=== PATIENT | male | born 1960 | race Caucasian/White ===

== ENCOUNTER → 2018-04-25 08:14 | Outpatient (CLI) | payer OTHER, SELFPAY ==
--- NOTE | 2018-04-25 | DI.US.S_ITS ---
PROCEDURE: US ABDOMEN LIMITED INDICATIONS: Bilateral inguinal hernia, without obstruction or TECHNIQUE: Real-time focused scanning was performed of the abdomen, with image documentation. COMPARISON: [facility], , ABDOMEN LIMITED, 03/24/2016, 10:14. FINDINGS: Targeted sonographic imaging of the bilateral inguinal regions was performed. There are bilateral fat containing inguinal hernias (right greater than left). The hernia sac on the right measures 4.5 x 3.5 cm with the neck of the hernia measuring 1.1 cm in diameter. The hernia sac on the left measures 4.1 x 1.9 cm with the neck of the hernia measuring 0.7 cm. No bowel is seen extending into these hernias. No soft tissue masses or drainable fluid collections are identified. No adjacent lymphadenopathy is appreciated. IMPRESSION: Small bilateral fat containing inguinal hernias. Dictated by: Colten Urrutia M.D. on 04/25/2018 at 8:38 Approved by: Colten Urrutia M.D. on 04/25/2018 at 8:40
== END ==
PROVIDERS: Visit Provider Student in an Organized Health Care Education/Training Program
DX: K40.20 Bilateral inguinal hernia, without obstruction or gangrene, not specified as recurrent (principal)
CPT/HCPCS: 76705

== ENCOUNTER 2018-05-30 06:46 | Day surgery (SDC) | payer OTHER, SELFPAY ==
[2018-05-27 10:22] VITALS: BMI 55.3
[2018-05-30] VITALS (14 sets, daily range): BP systolic 97–147; BP diastolic 65–91; PULSE 61–107; RESP 12–16; TEMP 36.3–37.1; O2SAT 91–97; BMI 55.3
--- NOTE | 2018-05-30 07:25 | P.OP.PRE_ITS ---
Pre-operative Note Interval Note History & Physical reviewed/Exam performed by Physician: Yes Changes to H&P: No H&P completed within 30 days and has changed as indicated here:: no change to H& P performed 05/17/18
[2018-05-30] MEDS: LACTATED RINGERS 1,000 ML 42 ML IV ×3 (07:40→11:41)
[2018-05-30] MEDS: CEFAZOLIN 2 GM/100 ML FROZ.PIGGY IV (07:45)
--- NOTE | 2018-05-30 08:08 | SUR.OPER ---
Supine on padded OR bed, head on pillow, arms secured on padded arm boards at <90 degrees abduction, legs uncrossed, safety belt at thigh, tape over blanket over lower legs.
[2018-05-30] MEDS: BUPIVACAINE 0.5% (PF) VIAL 30 ML INJ (08:13)
--- NOTE | 2018-05-30 08:39 | SUR.PREOP ---
glucose blood fingerstick not needed per dr. yuen 1973
--- NOTE | 2018-05-30 10:34 | PM.OP.1 ---
Operative Date/Time/Diagnoses Date of procedure: 05/30/18 Time of procedure: 10:34 Pre-op diagnosis: Bilateral inguinal hernias reducible without incarceration or strangulation. Post-op diagnosis: same (Right side direct and indirect. Left side direct.) Procedure & Clinicians Procedure: Repair bilateral inguinal hernias with plug and patch technique on both sides. Same procedure as scheduled: Yes Indications: Symptomatic bilateral inguinal hernias Surgeon: Morgan Ovalle Click Yes if Unassisted: Yes Anesthesia Type: General Operative Notes Findings: See postop diagnosis Closure Type: primary Specimen(s): none sent Implants & Drains: Mesh Estimated Blood Loss (mL): 15 Blood products transfused: none Procedure in detail: The patient is placed supine on the operating room table and underwent general LMA anesthesia. He was prepped and draped in usual fashion. Small transverse incision was made overlying the internal ring on the right side. It was carried down the level the external oblique. The external oblique was opened parallel with its fibers through the external ring. The cord structures were elevated. The cremaster was opened proximally and the patient was found to have a small lipoma of the cord which was removed. He also had a indirect sac which was from surrounding structures, opened, found to have no contents, and suture-ligated with a 2 0 silk suture. Distal portion was removed and the stump allowed to retract. A medium plug was placed in the defect created. I noted that the floor was also attenuated with fat protruding through A Gossom were thick floor. Anterior to it. The plug was tacked into place with interrupted 0 Tycron. I reapproximated the floor by suturing the iliopubic tract to the medial transversalis. This recreated the internal ring and reduced the fat. I then placed a patch over this reconstructed the floor and tacked into place with 0 Ethibond sutures. Was tacked at the pubic tubercle the posterior lamella the anterior rectus sheath the ileo inguinal ligament and superior lateral the cord. One branch of the nerve had to be sacrificed during the procedure and the and was tucked into muscle. The external oblique was closed running 3 0 Polysorb. The subcu was closed with interrupted 3 0 Polysorb and skin was closed running 4 0 Vicryl subcuticular stitch. Attention was turned to the opposite side. Mirror incision was made in left lower quadrant overlying the internal ring. Was carried down the level the external oblique. The identical operation commenced except on the left side there was no indirect sac. The floor was opened and the plug was placed through the floor to reduce the preperitoneal fat. The floor was reconstructed over this plug using a running 2 0 Prolene skin suture. This was run from the pubic tubercle proximally to re-form an internal ring and then back to the pubic tubercle. The closure was similar to the 1st 2 layers of the shoulders repair. A patch was then placed across the floor intact at the pubic tubercle, ilioinguinal ligament, of the posterior lamella the end the sternal oblique was closed with running 3 0 Polysorb. The skin was closed with interrupted 4 0 Vicryl subcuticular stitch and Steri-Strips. Local anesthetic infiltrated prior to dress the recovery room good condition. Complications: none Condition: stable Disposition: PACU Plan for aftercare: Follow-up in the office
[2018-05-30] MEDS: fentaNYL 100 MCG/2 ML INJ 25 MCG IV ×4 (11:01→11:23)
[2018-05-30] MEDS: OXYCODONE/ACETAMINOPHEN 5/325 TABLET 1 TAB PO (11:13)
[2018-05-30] MEDS: ONDANSETRON 4 MG/2 ML INJ IV (11:37)
== END 2018-05-30 12:44 | disposition home or self-care (01) ==
PROVIDERS: PCP Student in an Organized Health Care Education/Training Program; Referring Provider Student in an Organized Health Care Education/Training Program; Visit Provider Specialist
PROC: (CPT 49505; principal; 2018-05-30 14:15)
DX: K40.20 Bilateral inguinal hernia, without obstruction or gangrene, not specified as recurrent (principal); F17.210 Nicotine dependence, cigarettes, uncomplicated
CPT/HCPCS: 49505; C1781; J0690; J1100; J2250; J2405; J2704; J3010

== ENCOUNTER → 2019-11-01 10:31 | Outpatient (CLI) | payer OTHER, SELFPAY ==
[2019-11-01 10:47] LABS: Bacteria Urine None Seen; RBC Urine None Seen (0-5/HPF)
[2019-11-01 11:27] LABS: Appearance Urine UA CLEAR; Bilirubin Urine UA NEGATIVE (NEGATIVE); Color Urine UA YELLOW; Glucose Urine UA NEGATIVE (Negative); Ketones Urine UA NEGATIVE (NEGATIVE); Leukocyte Esterase Urine UA NEGATIVE (NEGATIVE); Nitrite Urine UA NEGATIVE (Negative); Occult Blood Urine UA NEGATIVE (Negative); Protein Urine UA NEGATIVE (Negative); Urobilinogen Urine UA 0.2 E.U./dL (0.2); pH Urine UA 6.5 (4.5-8.0)
[2019-11-01 11:36] LABS: Culture Indicated Urine Cult Not Indicated; Squamous Epithelial Cell Urine 0-1 /HPF (0-5/HPF); WBC Urine 0-1/HPF (0-5/HPF)
== END ==
PROVIDERS: PCP Student in an Organized Health Care Education/Training Program; Referring Provider Student in an Organized Health Care Education/Training Program; Visit Provider Student in an Organized Health Care Education/Training Program
DX: R35.0 Frequency of micturition (principal)
CPT/HCPCS: 36415; 81001; G0103

== ENCOUNTER 2019-11-24 12:01 | Emergency (ER) | payer OTHER, SELFPAY ==
[2019-11-24] VITALS (13 sets, daily range): BP systolic 120–139; BP diastolic 80–92; PULSE 56–70; RESP 12–36; O2SAT 96–99; BMI 24.3
--- NOTE | 2019-11-24 12:15 | DI.RAD.S_ITS ---
PROCEDURE: XR CHEST 1V INDICATIONS: chest pain TECHNIQUE: One view of the chest was acquired. COMPARISON: None. FINDINGS: Surgical changes and devices: None. Lungs and pleura: Prominent vascular markings appear to be present within the bilateral infrahilar regions without a large area of pulmonary consolidation. There is no effusion or definite pneumothorax. Mediastinum: Mediastinal contours appear normal. Heart size is normal. Bones and chest wall: No suspicious bony lesions. Overlying soft tissues appear unremarkable. IMPRESSION: Possible mild vascular congestion. No definite pneumonia. Dictated by: Colten Urrutia M.D. on 11/24/2019 at 12:07 Approved by: Colten Urrutia M.D. on 11/24/2019 at 12:09
[2019-11-24 12:37] LABS: Add Manual Diff / Slide Review NO; Basophils Absolute Auto 100 /uL (0-100); Basophils Percent Auto 2.2 % (0-2); Eosinophils Absolute Auto 100 /uL (0-450); Eosinophils Percent Auto 1.9 % (2-4); Hematocrit 46.3 % (41-53); Hemoglobin 16.2 g/dL (13.5-17.5); Lymphocytes Absolute Auto 1200 /uL (1100-4500); Mean Corpuscular Hemoglobin 30.6 PG (26-34); Mean Corpuscular Volume 87.3 fL (80-100); Monocytes Absolute Auto 500 /uL (0-900); Monocytes Percent Auto 8.5 % (3-14); Neutrophils Absolute Auto 3900 /uL (1500-7000); Neutrophils Percent Auto 66.4 % (50-75); Platelet Count 254 X10^3/uL (150-400); Red Cell Distribution Width 13.8 % (11.6-14.8); White Blood Cell Count 5.9 X10^3/uL (4.5-11.0)
[2019-11-24 12:43] LABS: INR 1.1 (0.9-1.3); Prothrombin Time 12.7 SECONDS (10.1-12.7)
[2019-11-24 12:45] LABS: PTT Partial Thromboplastin Tim 31 SECONDS (26.4-36.2)
[2019-11-24 12:48] LABS: Alanine Aminotransferase 21 IU/L (<50); Albumin 4.4 g/dL (3.5-5.0); Albumin Globulin Ratio 1.5 (1.0-2.8); Alkaline Phosphatase 108 U/L (38-126); Aspartate Aminotransferase 25 IU/L (17-59); BUN Creatinine Ratio 24.3 (6-22); Bilirubin Total 0.9 mg/dL (0.2-1.3); Blood Urea Nitrogen 18 mg/dL (9-20); Calcium 9.4 mg/dL (8.4-10.2); Carbon Dioxide 27 mmol/L (22-32); Chloride 106 mmol/L (98-107); Creatine Kinase 90 U/L (55-170); Estimated Glomerular Filt Rate > 60.0 mL/min (>60); Globulin 2.9 g/dL (1.7-4.1); Glucose 91 mg/dL (70-100); HEMOLYSIS < 15 (0-50); Lipase 60 U/L (23-300); Sodium 137 mmol/L (137-145); Total Protein 7.3 g/dL (6.3-8.2)
[2019-11-24 12:57] LABS: NT-proBNP (BNP-Adult 18+) 45 pg/mL (<125)
[2019-11-24 12:59] LABS: Troponin I < 0.012 ng/mL (0.01-0.034)
--- NOTE | 2019-11-24 13:10 | ED.SOB ---
HPI - SOB/Dyspnea <ALBERT Garrett - Last Filed: 11/24/19 21:06> General Chief Complaint: Weakness Stated Complaint: Heart Issues, Sent From Time Seen by Provider: 11/24/19 12:37 Source: patient Mode of arrival: Wheelchair Limitations: no limitations History of Present Illness HPI Narrative: 59yo male presents to the emergency department complaining of shortness of breath with exertion for the past few weeks. Patient states usually walks 3-4 miles a day without difficulty but he has noticed that he feels short of breath and that his heart is pounding when he walks less than a mile, his symptoms have worsened over the past 3 weeks. Patient reports that he by a oxygen saturation monitor noted his saturations to be in the low 80s while walking. Patient reports that he has had a history of anxiety that has caused other symptoms such dizziness at times but states this feels different. Patient also reports he is sensitive to medication, he stopped taking his tamsulosin a few years ago due to dizziness and headaches associated with this medication. Patient denies taking any medication at this time, denies taking any supplements. Patient denies any chest pain, chest pressure, headaches, nausea, vomiting, diarrhea, fevers, cough, or history of smoking. Patient denies any history of heart problems such as congestive heart failure or NE. Related Data Home Medications Medication Instructions Recorded Confirmed No Known Home Medications 11/24/19 11/24/19 Allergies Allergy/AdvReac Type Severity Reaction Status Date / Time venom-honey bee Allergy Severe Unlisted Verified 11/24/19 13:57 [BEE VENOM (HONEY BEE)] pecan nut [PECAN NUT] Allergy Intermediate Verified 11/24/19 13:57 macadamia nut Allergy Intermediate Uncoded 05/27/18 10:24 Review of Systems <ALBERT Garrett - Last Filed: 11/24/19 21:06> Review of Systems Narrative: REVIEW OF SYSTEMS: GENERAL: Denies fevers. HENT: No head trauma or hearing loss. EYES: No loss of vision, double vision, eye pain, irritation or discharge. CARDIOVASCULAR: No chest pain or syncope. RESPIRATORY: Reports shortness of breath with exertion, see HPI. GASTROINTESTINAL: No nausea, vomiting, diarrhea, or constipation. MUSCULOSKELETAL: No weakness or injury. INTEGUMENTARY: No rash, lesions, or pruritus. NEURO: No memory loss, or confusion. Patient History <ALBERT Garrett - Last Filed: 11/24/19 21:06> Medical History Bilateral inguinal hernia (Acute) Dislocated patella (Acute) Disorder of vestibular function (Acute) Hemorrhoids (Acute) History of Holter monitoring (Acute ~03/2017) Impaired vision (Acute) Kidney stones (Acute ~2001) Low back pain (Acute ~1999) Near syncope (Acute ~06/2017) Numbness and tingling (Acute) Rathke's cyst (Acute) Surgical History H/O knee surgery (Acute) History of colonoscopy (Acute) History of vasectomy (Resolved) S/P reconstruction of ligament of knee (Resolved) Family History Brother Age: 64 Hypertension Father Age: 92 Hypertension Prostate cancer Mother Age: 88 Crohn disease Sjogren's disease Grandmother Stroke Social History marital status: household members: spouse occupational status: employed Smoking Status: Former smoker alcohol intake: current substance use type: does not use Smoking Status: Former smoker Substance Use Type: does not use Exam <ALBERT Garrett - Last Filed: 11/24/19 21:06> Initial Vital Signs Initial Vital Signs: Vital Signs Pulse Rate 70 11/24/19 12:04 Respiratory Rate 16 11/24/19 12:04 Blood Pressure 137/92 H 11/24/19 12:04 Pulse Oximetry 99 11/24/19 12:04 PHYSICAL EXAMINATION: GENERAL: Well groomed, alert, and cooperative. Answers questions promptly and appropriately. Vital signs noted. HENT: Normocephalic, atraumatic. Ear canals patent. TMs intact without mucus or erythema. Oropharynx without erythema. Tonsils are not present. EYES: Conjunctiva pink, sclera white, no periorbital swelling. No discharge. CHEST: Normal to inspection and without deformities. CARDIOVASCULAR: S1 and S2 sounds normal. Regular rate and rhythm, no murmurs, clicks, or bruits. RESPIRATORY: Normal respiratory rate, trachea midline, airway patent. No stridor, nasal flaring or accessory muscle use. Able to speak in full sentences. Lungs are clear in all sun without wheeze, rhonchi, or crackles. Ambulatory saturation greater than 95%, no respiratory distress with walking around the department. No cough. MUSCULOSKELETAL: Normal gait and coordination. Equal tone and mass bilaterally. EXTREMITIES: Moves all extremities. SKIN: Warm, dry, soft, appropriate color for ethnicity. No lesions, rashes, or wounds to visualized areas. NEURO: Alert and Oriented X 3. Good coordination. No ataxia or cognitive issues. PSYCH: Appropriate affect and mood. <Sapna Lyle MD - Last Filed: 12/12/19 18:07> Initial Vital Signs Initial Vital Signs: Vital Signs Pulse Rate 70 11/24/19 12:04 Respiratory Rate 16 11/24/19 12:04 Blood Pressure 137/92 H 11/24/19 12:04 Pulse Oximetry 99 11/24/19 12:04 Scores <ABLERT Garrett - Last Filed: 11/24/19 21:06> Wells' Criteria for PE Clinical signs and symptoms of DVT: No PE is #1 Dx or equally likely: No Heart rate > 100: No Immobilization at least 3 days or surg in previous 4 weeks: No History of PE or DVT: No Hemoptysis: No Malignancy w/Treatment within 6 months or palliative: No Wells' PE Score total: 0 Course <ALBERT Garrett - Last Filed: 11/24/19 21:06> Course Course Narrative: Patient had an ambulatory saturation of greater than 95% no respiratory distress noted with ambulation. Orders Ordered: ED Orders 11/24/19 12:08 EKG-12 Lead Stat 11/24/19 12:15 XR chest 1V Stat 11/24/19 12:30 BNP [NT-proBNP (BNP-Adult 18+)] Stat Complete Blood Count AUTO DIFF Stat Comprehensive Metabolic Panel Stat D Dimer Stat Lipase Stat Partial Thromboplastin Time Stat Prothrombin Time INR Stat Troponin & CK Cardiac Panel Stat Reevaluation(s) Reevaluation #1: Patient staffed with Dr. Lyle per protocol. Vital Signs Vital signs: Vital Signs - 8 hr 11/24/19 13:11 11/24/19 13:15 11/24/19 13:20 Pulse Rate 64 56 L 61 Respiratory Rate 12 12 14 Blood Pressure Pulse Oximetry 98 98 97 11/24/19 13:25 11/24/19 13:30 11/24/19 13:40 Pulse Rate 61 61 58 L Respiratory Rate 15 17 15 Blood Pressure Pulse Oximetry 96 98 97 11/24/19 13:47 11/24/19 14:00 Pulse Rate 63 56 L Respiratory Rate 36 H 12 Blood Pressure 127/80 120/83 Pulse Oximetry 98 98 <Sapna Lyle MD - Last Filed: 12/12/19 18:07> Orders Ordered: ED Orders 11/24/19 12:08 EKG-12 Lead Stat 11/24/19 12:15 XR chest 1V Stat 11/24/19 12:30 BNP [NT-proBNP (BNP-Adult 18+)] Stat Complete Blood Count AUTO DIFF Stat Comprehensive Metabolic Panel Stat D Dimer Stat Lipase Stat Partial Thromboplastin Time Stat Prothrombin Time INR Stat Troponin & CK Cardiac Panel Stat Vital Signs Vital signs: Vital Signs - 8 hr 11/24/19 13:11 11/24/19 13:15 11/24/19 13:20 Pulse Rate 64 56 L 61 Respiratory Rate 12 12 14 Blood Pressure Pulse Oximetry 98 98 97 11/24/19 13:25 11/24/19 13:30 11/24/19 13:40 Pulse Rate 61 61 58 L Respiratory Rate 15 17 15 Blood Pressure Pulse Oximetry 96 98 97 11/24/19 13:47 11/24/19 14:00 Pulse Rate 63 56 L Respiratory Rate 36 H 12 Blood Pressure 127/80 120/83 Pulse Oximetry 98 98 MDM - SOB/Dyspnea <ALBERT Garrett - Last Filed: 11/24/19 21:06> Medical Records Attestation: I reviewed the patient's medical records. Lab Data Attestation: I reviewed the patient's lab results. Result diagrams: 11/24/19 12:30 11/24/19 12:30 Labs: Lab Results 11/24/19 11/24/19 11/24/19 Range/Units 12:30 12:30 12:30 WBC 5.9 (4.5-11.0) X10^3/uL RBC 5.30 (4.5-5.9) X10^6/uL Hgb 16.2 (13.5-17.5) g/dL Hct 46.3 (41-53) % MCV 87.3 (80-100) fL MCH 30.6 (26-34) PG MCHC 35.0 (30-36) % RDW 13.8 (11.6-14.8) % Plt Count 254 (150-400) X10^3/uL Neut % (Auto) 66.4 (50-75) % Lymph % (Auto) 21.0 L (25-40) % [place] % (Auto) 8.5 (3-14) % Eos % (Auto) 1.9 L (2-4) % Baso % (Auto) 2.2 H (0-2) % Neut # (Auto) 3900 (9277-5020) /uL Lymph # (Auto) 1200 (1739-3203) /uL [place] # (Auto) 500 (0-900) /uL Eos # (Auto) 100 (0-450) /uL Baso # (Auto) 100 (0-100) /uL PT 12.7 (10.1-12.7) SECONDS INR 1.1 (0.9-1.3) APTT 31 (26.4-36.2) SECONDS D-Dimer (<230) ng/mL Sodium 137 (137-145) mmol/L Potassium 4.0 (3.4-5.1) mmol/L Chloride 106 (98-107) mmol/L Carbon Dioxide 27 (22-32) mmol/L BUN 18 (9-20) mg/dL Creatinine 0.74 (0.66-1.25) mg/dL Estimated GFR > 60.0 (>60) mL/min BUN/Creatinine Ratio 24.3 H (6-22) Glucose 91 (70-100) mg/dL Calcium 9.4 (8.4-10.2) mg/dL Total Bilirubin 0.9 (0.2-1.3) mg/dL AST 25 (17-59) IU/L ALT 21 (<50) IU/L Alkaline Phosphatase 108 (38-126) U/L Total Creatine Kinase 90 (55-170) U/L CK-MB (CK-2) TNP CK-MB (CK-2) Rel Index TNP Troponin I < 0.012 (0.01-0.034) ng/mL NT-Pro-B Natriuret Pep (<125) pg/mL Total Protein 7.3 (6.3-8.2) g/dL Albumin 4.4 (3.5-5.0) g/dL Globulin 2.9 (1.7-4.1) g/dL Albumin/Globulin Ratio 1.5 (1.0-2.8) Lipase 60 (23-300) U/L COVID-19 PCR (Not Detected) 11/24/19 11/24/19 11/24/19 Range/Units 12:30 12:30 13:50 WBC (4.5-11.0) X10^3/uL RBC (4.5-5.9) X10^6/uL Hgb (13.5-17.5) g/dL Hct (41-53) % MCV (80-100) fL MCH (26-34) PG MCHC (30-36) % RDW (11.6-14.8) % Plt Count (150-400) X10^3/uL Neut % (Auto) (50-75) % Lymph % (Auto) (25-40) % [place] % (Auto) (3-14) % Eos % (Auto) (2-4) % Baso % (Auto) (0-2) % Neut # (Auto) (7481-0879) /uL Lymph # (Auto) (6795-0841) /uL [place] # (Auto) (0-900) /uL Eos # (Auto) (0-450) /uL Baso # (Auto) (0-100) /uL PT (10.1-12.7) SECONDS INR (0.9-1.3) APTT (26.4-36.2) SECONDS D-Dimer < 200 (<230) ng/mL Sodium (137-145) mmol/L Potassium (3.4-5.1) mmol/L Chloride (98-107) mmol/L Carbon Dioxide (22-32) mmol/L BUN (9-20) mg/dL Creatinine (0.66-1.25) mg/dL Estimated GFR (>60) mL/min BUN/Creatinine Ratio (6-22) Glucose (70-100) mg/dL Calcium (8.4-10.2) mg/dL Total Bilirubin (0.2-1.3) mg/dL AST (17-59) IU/L ALT (<50) IU/L Alkaline Phosphatase (38-126) U/L Total Creatine Kinase (55-170) U/L CK-MB (CK-2) CK-MB (CK-2) Rel Index Troponin I (0.01-0.034) ng/mL NT-Pro-B Natriuret Pep 45 (<125) pg/mL Total Protein (6.3-8.2) g/dL Albumin (3.5-5.0) g/dL Globulin (1.7-4.1) g/dL Albumin/Globulin Ratio (1.0-2.8) Lipase (23-300) U/L COVID-19 PCR Not detected (Not Detected) Imaging Data Chest x-ray: Radiologist's Impression: [address] [address] XRay Report Signed Patient: Noé Vega VMR#: [id number] : 2Acct:[id number] Age/Sex: 59 / MDate of Service: 11/24/19 Loc: ED Accession Number: [id number] Procedure: XR chest 1V Ordering Provider: Sapna Lyle MD PROCEDURE: XR CHEST 1V INDICATIONS: chest pain TECHNIQUE: One view of the chest was acquired. COMPARISON: None. FINDINGS: Surgical changes and devices: None. Lungs and pleura: Prominent vascular markings appear to be present within the bilateral infrahilar regions without a large area of pulmonary consolidation. There is no effusion or definite pneumothorax. Mediastinum: Mediastinal contours appear normal. Heart size is normal. Bones and chest wall: No suspicious bony lesions. Overlying soft tissues appear unremarkable. IMPRESSION: Possible mild vascular congestion. No definite pneumonia. Dictated by: Colten Urrutia M.D. on 11/24/2019 at 12:07 Approved by: Colten Urrutia M.D. on 11/24/2019 at 12:09 ECG Data Interpretation: 1215: Normal sinus rhythm, rate 58, LA interval 188, QTC 392. No ST elevation or ST depression. T-wave inversion noted in V1. No ectopy. EKG also viewed Dr. Lyle per protocol. MDM Narrative Medical decision making narrative: 59-year-old male presents emergency department for exertional shortness of breath that is worse over the past 3 weeks. Differential includes reactive airway disease versus COVID-19/other viral etiology. Patient was swabbed for COVID-19, encouraged to isolate until results have returned. Less likely reactive airway disease due to lack of wheezing, no respiratory distress or wheezing via ambulation. Chest x-ray was clear except for mild congestion noted on images. Less likely ACS due to lack of chest pain, troponin negative, EKG was within normal limits. Low risk factors. Less likely PE as was criteria is negative, D-dimer negative. Non tachycardic, oxygen saturation of the normal limits, non tachypneic. Patient was encouraged to schedule a follow-up appointment with his primary care provider for discussion of further testing such as possible echocardiogram and or stress test if symptoms continue. Patient was given very strict ED return precautions for new or worsening symptoms. Patient agreed to plan of care verbalized understanding. <aSpna Lyle MD - Last Filed: 12/12/19 18:07> Lab Data Labs: Lab Results 11/24/19 11/24/19 11/24/19 Range/Units 12:30 12:30 12:30 WBC 5.9 (4.5-11.0) X10^3/uL RBC 5.30 (4.5-5.9) X10^6/uL Hgb 16.2 (13.5-17.5) g/dL Hct 46.3 (41-53) % MCV 87.3 (80-100) fL MCH 30.6 (26-34) PG MCHC 35.0 (30-36) % RDW 13.8 (11.6-14.8) % Plt Count 254 (150-400) X10^3/uL Neut % (Auto) 66.4 (50-75) % Lymph % (Auto) 21.0 L (25-40) % [place] % (Auto) 8.5 (3-14) % Eos % (Auto) 1.9 L (2-4) % Baso % (Auto) 2.2 H (0-2) % Neut # (Auto) 3900 (3642-9269) /uL Lymph # (Auto) 1200 (6624-0022) /uL [place] # (Auto) 500 (0-900) /uL Eos # (Auto) 100 (0-450) /uL Baso # (Auto) 100 (0-100) /uL PT 12.7 (10.1-12.7) SECONDS INR 1.1 (0.9-1.3) APTT 31 (26.4-36.2) SECONDS D-Dimer (<230) ng/mL Sodium 137 (137-145) mmol/L Potassium 4.0 (3.4-5.1) mmol/L Chloride 106 (98-107) mmol/L Carbon Dioxide 27 (22-32) mmol/L BUN 18 (9-20) mg/dL Creatinine 0.74 (0.66-1.25) mg/dL Estimated GFR > 60.0 (>60) mL/min BUN/Creatinine Ratio 24.3 H (6-22) Glucose 91 (70-100) mg/dL Calcium 9.4 (8.4-10.2) mg/dL Total Bilirubin 0.9 (0.2-1.3) mg/dL AST 25 (17-59) IU/L ALT 21 (<50) IU/L Alkaline Phosphatase 108 (38-126) U/L Total Creatine Kinase 90 (55-170) U/L CK-MB (CK-2) TNP CK-MB (CK-2) Rel Index TNP Troponin I < 0.012 (0.01-0.034) ng/mL NT-Pro-B Natriuret Pep (<125) pg/mL Total Protein 7.3 (6.3-8.2) g/dL Albumin 4.4 (3.5-5.0) g/dL Globulin 2.9 (1.7-4.1) g/dL Albumin/Globulin Ratio 1.5 (1.0-2.8) Lipase 60 (23-300) U/L COVID-19 PCR (Not Detected) 11/24/19 11/24/19 11/24/19 Range/Units 12:30 12:30 13:50 WBC (4.5-11.0) X10^3/uL RBC (4.5-5.9) X10^6/uL Hgb (13.5-17.5) g/dL Hct (41-53) % MCV (80-100) fL MCH (26-34) PG MCHC (30-36) % RDW (11.6-14.8) % Plt Count (150-400) X10^3/uL Neut % (Auto) (50-75) % Lymph % (Auto) (25-40) % [place] % (Auto) (3-14) % Eos % (Auto) (2-4) % Baso % (Auto) (0-2) % Neut # (Auto) (2653-7171) /uL Lymph # (Auto) (2869-0185) /uL [place] # (Auto) (0-900) /uL Eos # (Auto) (0-450) /uL Baso # (Auto) (0-100) /uL PT (10.1-12.7) SECONDS INR (0.9-1.3) APTT (26.4-36.2) SECONDS D-Dimer < 200 (<230) ng/mL Sodium (137-145) mmol/L Potassium (3.4-5.1) mmol/L Chloride (98-107) mmol/L Carbon Dioxide (22-32) mmol/L BUN (9-20) mg/dL Creatinine (0.66-1.25) mg/dL Estimated GFR (>60) mL/min BUN/Creatinine Ratio (6-22) Glucose (70-100) mg/dL Calcium (8.4-10.2) mg/dL Total Bilirubin (0.2-1.3) mg/dL AST (17-59) IU/L ALT (<50) IU/L Alkaline Phosphatase (38-126) U/L Total Creatine Kinase (55-170) U/L CK-MB (CK-2) CK-MB (CK-2) Rel Index Troponin I (0.01-0.034) ng/mL NT-Pro-B Natriuret Pep 45 (<125) pg/mL Total Protein (6.3-8.2) g/dL Albumin (3.5-5.0) g/dL Globulin (1.7-4.1) g/dL Albumin/Globulin Ratio (1.0-2.8) Lipase (23-300) U/L COVID-19 PCR Not detected (Not Detected) Discharge Plan Departure Patient Disposition: Home Clinical Impression: Exercise-induced shortness of breath Discharge Date/Time: 11/24/19 14:57 Instructions: DI for Shortness of Breath Activity Restrictions/Additional Instructions: Thank you for entrusting me with your care today. As discussed, your EKG and laboratory work are non-remarkable. Your chest x-ray shows some very mild infiltration, this may be normal versus viral versus general inflammation. You have been tested for COVID-19. This test may take 1-3 days for results to return, we will call you with these results. Please remain in quarantine with self isolation at home for 3 days after your symptoms have completely resolved. Drink lots of fluids, take Tylenol for fever, get extra rest, clean all surfaces, cover your cough, wash your hands frequently, and avoid sharing any personal items. If you need to seek medical care, please call the clinic or the emergency department before your arrival. Please schedule an appointment with your primary care provider in within the next few weeks for further evaluation and discussion about further testing if indicated. Return emergency department for any new or worsening symptoms such as chest pain, wheezing, severe shortness of breath, high fevers, uncontrollable vomiting, syncope, or any other concerns. Prescriptions: No Action No Known Home Medications RF: 0 Referrals: Jinny Howard PA-C [Primary Care Provider] - <Sapna Lyle MD - Last Filed: 12/12/19 18:07> [facility] I was immediately available in the department for consultation throughout this patient's visit. I agree with documentation as above. Sapna Lyle MD
[2019-11-24 13:57] LABS: D Dimer < 200 ng/mL (<230)
[2019-11-26 09:08] LABS: COVID19 Sendout Not Detected (Not Detected)
== END 2019-11-24 14:57 | disposition home or self-care (01) ==
PROVIDERS: Emergency Medicine; Emergency Provider Nurse Practitioner; PCP Student in an Organized Health Care Education/Training Program
DX: R06.02 Shortness of breath (principal); R07.9 Chest pain, unspecified; Z03.818 Encounter for observation for suspected exposure to other biological agents ruled out
CPT/HCPCS: 36415; 71045; 80053; 82550; 83690; 83880; 84484; 85025; 85379; 85610; 85730; 87635; 93005; 99284

== ENCOUNTER → 2020-03-10 19:06 | Outpatient (ROUT) | payer OTHER, SELFPAY | PROVIDERS: PCP Student in an Organized Health Care Education/Training Program; Visit Provider Internal Medicine | DX: R39.9 Unspecified symptoms and signs involving the genitourinary system (principal) | CPT/HCPCS: 87086 ==

== ENCOUNTER → 2020-07-22 14:59 | Outpatient (CLI) | payer OTHER, SELFPAY ==
[2020-07-22 17:54] LABS: Prostate Specific Antigen 1.02 ng/mL (0.10-4.00)
== END ==
PROVIDERS: PCP Student in an Organized Health Care Education/Training Program; Referring Provider Specialist; Visit Provider Specialist
DX: R97.20 Elevated prostate specific antigen [PSA] (principal)
CPT/HCPCS: 36415; 84153

== ENCOUNTER 2020-07-30 18:39 | Emergency (ER) | payer OTHER, SELFPAY ==
[2020-07-30 18:43] VITALS: BP 150/81; PULSE 81; RESP 18; TEMP 38.1; O2SAT 97; BMI 25.1
--- NOTE | 2020-07-30 18:57 | DI.RAD.S_ITS ---
PROCEDURE: XR KNEE RT 3V INDICATIONS: closed right knee in car door. TECHNIQUE: 3 views of the knee were acquired. COMPARISON: None. FINDINGS: Bones: No fractures or dislocations. No suspicious bony lesions. Mild tricompartmental degenerative changes. Soft tissues: No joint effusion. No suspicious soft tissue calcifications. IMPRESSION: No acute finding. Mild tricompartmental degenerative changes. Dictated by: Patrice Cao M.D. on 07/30/2020 at 19:30 Approved by: Patrice Cao M.D. on 07/30/2020 at 19:30
[2020-07-30] MEDS: SODIUM CHLORIDE 0.9% 1,000 ML 1000 ML IV (19:19)
[2020-07-30 19:34] LABS: Bacteria Urine None Seen; RBC Urine None Seen (0-5/HPF)
[2020-07-30 19:46] LABS: Add Manual Diff / Slide Review NO; Basophils Absolute Auto 100 /uL (0-100); Basophils Percent Auto 0.7 % (0-2); Eosinophils Absolute Auto 100 /uL (0-450); Eosinophils Percent Auto 0.9 % (2-4); Hematocrit 43.9 % (41-53); Hemoglobin 14.9 g/dL (13.5-17.5); Lymphocytes Absolute Auto 1300 /uL (1100-4500); Lymphocytes Percent Auto 10.4 % (25-40); Mean Corpuscular HGB Conc 33.9 % (30-36); Mean Corpuscular Hemoglobin 29.7 PG (26-34); Mean Corpuscular Volume 87.7 fL (80-100); Monocytes Absolute Auto 1100 /uL (0-900); Monocytes Percent Auto 8.5 % (3-14); Neutrophils Absolute Auto 9900 /uL (1500-7000); Neutrophils Percent Auto 79.5 % (50-75); Platelet Count 223 X10^3/uL (150-400); Red Blood Cell Count 5.01 X10^6/uL (4.5-5.9); Red Cell Distribution Width 14.2 % (11.6-14.8); White Blood Cell Count 12.4 X10^3/uL (4.5-11.0)
[2020-07-30 20:04] LABS: Culture Indicated Urine Cult Not Indicated; Squamous Epithelial Cell Urine 0-1 /HPF (0-5/HPF); WBC Urine 0-1/HPF (0-5/HPF)
[2020-07-30 20:29] LABS: Prothrombin Time 12.1 SECONDS (10.1-12.7)
[2020-07-30 20:31] LABS: PTT Partial Thromboplastin Tim 31 SECONDS (26.4-36.2)
[2020-07-30 20:36] LABS: Alanine Aminotransferase 25 IU/L (<50); Albumin 4.5 g/dL (3.5-5.0); Albumin Globulin Ratio 1.5 (1.0-2.8); Alkaline Phosphatase 148 U/L (38-126); Aspartate Aminotransferase 37 IU/L (17-59); BUN Creatinine Ratio 22.9 (6-22); Bilirubin Total 0.7 mg/dL (0.2-1.3); Blood Urea Nitrogen 22 mg/dL (9-20); Calcium 9.5 mg/dL (8.4-10.2); Carbon Dioxide 25 mmol/L (22-32); Chloride 104 mmol/L (98-107); Estimated Glomerular Filt Rate > 60.0 mL/min (>60); Glucose 116 mg/dL (70-100); HEMOLYSIS < 15 (0-50); Lipase 64 U/L (23-300); Potassium 3.9 mmol/L (3.4-5.1); Sodium 137 mmol/L (137-145); Total Protein 7.5 g/dL (6.3-8.2)
--- NOTE | 2020-07-30 21:27 | ED_ITS ---
HPI - Skin/Abscess/Foreign Bdy General Chief complaint: Skin/Abscess/Foreign Body Stated complaint: RIGHT KNEE PAIN FEVER 101 Time Seen by Provider: 07/30/20 21:26 Source: patient and family Mode of arrival: Wheelchair History of Present Illness HPI narrative: This is a 60-year-old male comes emergency department with complaint of redness in his right leg, pain and fever. Patient states several days ago he was getting into a truck at work when the door was pushed closed by the wind trapping his knee. At that time he had a small that was created on the anterior upper velasquez. Patient states it did bleed. He states he had some mild discomfort but was able to walk without major issue. The following day he was working on placing a septic line and spent a lot of time in the water with his leg immersed. Since then patient has had increasing pain and redness. He describes pain just below the knee and wrapping around to the medial side. He states there has been some mild redness as well as swelling of the knee and area just below. Patient states he has had increasing pain over time. Patient did have a fever at the walk-in clinic and here at the department. He denies any chest pain, no shortness of breath, no cold cough or congestion. He denies any nausea or vomiting. No other GI or urinary symptoms. Patient denies any other medical issues. He has had bilateral knee surgery and hernia surgery. He states he is allergic to sedation medications but no antibiotics. Related Data Home Medications Medication Instructions Recorded Confirmed cholecalciferol (vitamin D3) 10 10 mcg PO DAILY 06/09/20 mcg (400 unit) capsule fipfqrsf-mbr-hgnmt acid 300 1 tab PO DAILY 06/09/20 mcg-lycopene 600 mcg-lutein 300 mcg tablet Previous Rx's Medication Instructions Recorded doxycycline hyclate 100 mg PO BID #14 tab 07/30/20 Allergies Allergy/AdvReac Type Severity Reaction Status Date / Time venom-honey bee Allergy Severe Unlisted Verified 06/09/20 08:06 [BEE VENOM (HONEY BEE)] pecan nut [PECAN NUT] Allergy Intermediate Verified 06/09/20 08:06 macadamia nut Allergy Intermediate Uncoded 06/09/20 08:06 Review of Systems Review of Systems ROS Unobtainable: All systems reviewed & are unremarkable except as noted in HPI and below Patient History Medical History Bilateral inguinal hernia BPH w urinary obs/LUTS Contusion of lower leg, right Dislocated patella Disorder of vestibular function Family history of prostate cancer in father Hemorrhoids History of Holter monitoring (~03/2017) Hypertension Impaired vision Kidney stones (~2001) Low back pain (~1999) Near syncope (~06/2017) Numbness and tingling Rathke's cyst Surgical History H/O cystoscopy H/O knee surgery History of colonoscopy History of hernia repair History of vasectomy S/P reconstruction of ligament of knee Family History Brother Age: 64 Hypertension Father Age: 92 Hypertension Prostate cancer UTI (urinary tract infection) Mother Age: 88 Crohn disease Sjogren's disease Hypertension Grandmother Stroke Grandfather Cancer Stroke Social History marital status: household members: spouse occupational status: employed Smoking Status: Former smoker alcohol intake: current substance use type: does not use caffeine: Yes Smoking Status: Former smoker alcohol intake frequency: 0-2 drinks per day Substance Use Type: does not use Exam Narrative Exam Narrative: GENERAL: Alert and oriented x three, well-nourished, well- appearing male in mild distress HEENT: Head normocephalic, atraumatic, EOMI, pupils reactive, face symmetric, moist mucous membranes NECK: Supple, full range of motion CARDIOVASCULAR: Regular rate and rhythm without murmurs, rubs or gallops. RESPIRATORY: Breath sounds equal bilaterally, no wheezes rales or rhonchi. ABDOMEN: Soft, nontender. Normoactive bowel sounds all 4 quadrants. No guarding or rebound, rigidity, no mass : No CVA tenderness EXTREMITIES: Normal range of motion, no clubbing. Patient has a small wound on the anterior velasquez about 4 cm below the knee that scabbed over, there is a slight area of erythema and swelling. No induration, no fluctuance. It is tracking up towards the knee. The the right lower extremity does have mild swelling in comparison to the left in the upper calf and knee region. Patient does have range of motion. He has 2+ dorsalis pedis. Normal sensation throughout. The area is not warm to touch. Patient does not have any pain in the posterior knee. Neurovascularly intact NEUROLOGICAL: Cranial nerves II through XII grossly intact. Moving all extremities SKIN: Warm, dry, no petechiae, no rashes or lesions other than described. Initial Vital Signs Initial Vital Signs: Vital Signs Temperature 100.5 F H 07/30/20 18:43 Pulse Rate 81 07/30/20 18:43 Respiratory Rate 18 07/30/20 18:43 Blood Pressure 150/81 H 07/30/20 18:43 Pulse Oximetry 97 07/30/20 18:43 Course Orders Ordered: ED Orders 07/30/20 18:57 XR knee RT 3V Stat 07/30/20 19:05 Complete Blood Count AUTO DIFF Stat Comprehensive Metabolic Panel Stat Lactate (Lactic Acid) Stat Lipase Stat Partial Thromboplastin Time Stat Procalcitonin Stat Prothrombin Time INR Stat 07/30/20 19:27 Urine Microscopic Stat 07/30/20 19:41 Blood Culture Stat Discontinued Medications Doxycycline Hyclate (Doxycycline Hyclate 100 Mg Tablet) 100 mg PO NOW ONE Stop: 07/30/20 21:46 Last Admin: 07/30/20 21:49 Dose: 100 mg Documented by: ASIM Sodium Chloride (Normal Saline 0.9%) 1,000 mls @ 1,000 mls/hr IV BOLUS ONE Stop: 07/30/20 19:55 Last Infusion: 07/30/20 21:05 Dose: 0 mls/hr Documented by: Admin: 07/30/20 19:19 Dose: 1,000 mls/hr Documented by: ASIM Tramadol HCl (Tramadol 50 Mg Prepack) 1 bottle MISC SEEINSTR ONE Stop: 07/30/20 21:46 Last Admin: 07/30/20 21:49 Dose: 1 bottle Documented by: ASIM Vital Signs Vital signs: Vital Signs - 8 hr 07/30/20 21:56 Pulse Rate 67 Respiratory Rate 16 Blood Pressure 135/83 Pulse Oximetry 97 MDM - Skin/Abscess/Foreign Bdy Lab Data Attestation: I reviewed the patient's lab results. Result diagrams: 07/30/20 19:05 07/30/20 19:05 Labs: Lab Results 07/30/20 07/30/20 07/30/20 Range/Units 19:05 19:05 19:05 WBC 12.4 H (4.5-11.0) X10^3/uL RBC 5.01 (4.5-5.9) X10^6/uL Hgb 14.9 (13.5-17.5) g/dL Hct 43.9 (41-53) % MCV 87.7 (80-100) fL MCH 29.7 (26-34) PG MCHC 33.9 (30-36) % RDW 14.2 (11.6-14.8) % Plt Count 223 (150-400) X10^3/uL Neut % (Auto) 79.5 H (50-75) % Lymph % (Auto) 10.4 L (25-40) % [place] % (Auto) 8.5 (3-14) % Eos % (Auto) 0.9 L (2-4) % Baso % (Auto) 0.7 (0-2) % Neut # (Auto) 9900 H (5711-2164) /uL Lymph # (Auto) 1300 (8999-8243) /uL [place] # (Auto) 1100 H (0-900) /uL Eos # (Auto) 100 (0-450) /uL Baso # (Auto) 100 (0-100) /uL PT 12.1 (10.1-12.7) SECONDS INR 1.0 (0.9-1.3) APTT 31 (26.4-36.2) SECONDS Sodium 137 (137-145) mmol/L Potassium 3.9 (3.4-5.1) mmol/L Chloride 104 (98-107) mmol/L Carbon Dioxide 25 (22-32) mmol/L BUN 22 H (9-20) mg/dL Creatinine 0.96 (0.66-1.25) mg/dL Estimated GFR > 60.0 (>60) mL/min BUN/Creatinine Ratio 22.9 H (6-22) Glucose 116 H (70-100) mg/dL Lactate (0.7-2.1) mmol/L Calcium 9.5 (8.4-10.2) mg/dL Total Bilirubin 0.7 (0.2-1.3) mg/dL AST 37 (17-59) IU/L ALT 25 (<50) IU/L Alkaline Phosphatase 148 H (38-126) U/L Total Protein 7.5 (6.3-8.2) g/dL Albumin 4.5 (3.5-5.0) g/dL Globulin 3.0 (1.7-4.1) g/dL Albumin/Globulin Ratio 1.5 (1.0-2.8) Lipase 64 (23-300) U/L Procalcitonin 0.10 (<0.5) ng/mL Urine RBC (0-5/HPF) Urine WBC (0-5/HPF) Ur Squamous Epith Cells (0-5/HPF) Urine Bacteria (None) Ur Culture Indicated? 07/30/20 07/30/20 Range/Units 19:05 19:27 WBC (4.5-11.0) X10^3/uL RBC (4.5-5.9) X10^6/uL Hgb (13.5-17.5) g/dL Hct (41-53) % MCV (80-100) fL MCH (26-34) PG MCHC (30-36) % RDW (11.6-14.8) % Plt Count (150-400) X10^3/uL Neut % (Auto) (50-75) % Lymph % (Auto) (25-40) % [place] % (Auto) (3-14) % Eos % (Auto) (2-4) % Baso % (Auto) (0-2) % Neut # (Auto) (9880-6933) /uL Lymph # (Auto) (6135-2350) /uL [place] # (Auto) (0-900) /uL Eos # (Auto) (0-450) /uL Baso # (Auto) (0-100) /uL PT (10.1-12.7) SECONDS INR (0.9-1.3) APTT (26.4-36.2) SECONDS Sodium (137-145) mmol/L Potassium (3.4-5.1) mmol/L Chloride (98-107) mmol/L Carbon Dioxide (22-32) mmol/L BUN (9-20) mg/dL Creatinine (0.66-1.25) mg/dL Estimated GFR (>60) mL/min BUN/Creatinine Ratio (6-22) Glucose (70-100) mg/dL Lactate 1.0 (0.7-2.1) mmol/L Calcium (8.4-10.2) mg/dL Total Bilirubin (0.2-1.3) mg/dL AST (17-59) IU/L ALT (<50) IU/L Alkaline Phosphatase (38-126) U/L Total Protein (6.3-8.2) g/dL Albumin (3.5-5.0) g/dL Globulin (1.7-4.1) g/dL Albumin/Globulin Ratio (1.0-2.8) Lipase (23-300) U/L Procalcitonin (<0.5) ng/mL Urine RBC None seen (0-5/HPF) Urine WBC 0-1/hpf (0-5/HPF) Ur Squamous Epith Cells 0-1 /hpf (0-5/HPF) Urine Bacteria None seen (None) Ur Culture Indicated? Cult not indicated Urine Dip Bedside Urine Glucose Negative Bedside Urine Bilirubin - Negative Bedside Urine Ketone + 15 Urine Specific [place] 1.030 Bedside Urine Occult Blood - Negative Bedside Urine pH 5.5 Bedside Urine Protein - Negative Bedside Urine Urobilinogen - Negative Bedside Urine Nitrite - Negative Bedside Urine Leukocytes - Negative Esterase Imaging Data Extremity x-ray #1: Radiologist's Impression: [address] [id number] ReportSigned Patient: Noé Vega VMR#: [id number]: 2Acct:[id number]/Sex: 60 / MDate of Service: 07/30/20Loc: EDAccession Number: [id number] Procedure: XR knee RT 3V Ordering Provider: Misti Miller D.O. PROCEDURE: XR KNEE RT 3V INDICATIONS: closed right knee in car door. TECHNIQUE: 3 views of the knee were acquired. COMPARISON: None. FINDINGS: Bones: No fractures or dislocations. No suspicious bony lesions. Mild tricompartmental degenerative changes. Soft tissues: No joint effusion. No suspicious soft tissue calcifications. IMPRESSION: No acute finding. Mild tricompartmental degenerative changes. Dictated by: Patrice Cao M.D. on 07/30/2020 at 19:30 Approved by: Patrice Cao M.D. on 07/30/2020 at 19:30 [facility] Narrative Medical decision making narrative: This is a 60-year-old male with pain and redness just below and up towards the right knee and fever. Patient does not have any other septic criteria. He has an obvious wound which he states was later some wrist in water and is not particularly clean water as they were trying to place a septic line for his work. Patient then developed increasing redness and pain. He is not particularly tender over the area of the joint or just below and lateral. My suspicion is that this is not a septic joint but more of a cellulitis. I do not even appreciate significant swelling of the prepatellar bursa. Plan to start patient on doxycycline with his unique exposure to potential pathogens, strict return precautions. Patient has been in contact with his Orthopedic surgeon and can also follow up with them if his symptoms are mild. Discharge Plan Departure Patient Disposition: Home Clinical Impression: Cellulitis of leg, right Instructions: DI for Cellulitis -- Adult Activity Restrictions/Additional Instructions: Follow up with your physician in the next week if your symptoms have not complet sana resolved. Take antibiotics until they are completely gone. This medication increases your risk of some so do not spend time in direct sunlight. Prescription sent to [facility] in [place]. You may take ibuprofen up to 800 mg every 8 hours as needed for pain. You may also take Tylenol up to a 1000 mg every 8 hours as needed for pain. If needed take 1 tablet of tramadol every 6 hours as needed for pain. You may take this with the ibuprofen and/or Tylenol. Return for persistent fevers, increasing redness, swelling, pain, new numbness, tingling, new chest pain, shortness of breath, lightheadedness or passing out, persistent vomiting other new or concerning symptoms. Prescriptions: New doxycycline hyclate 100 mg tablet 100 mg PO BID Qty: 14 RF: 0 No Action cholecalciferol (vitamin D3) 10 mcg (400 unit) capsule 10 mcg PO DAILY RF: 0 Men 50 Plus Multivitamin 300-600-300 mcg tablet 1 tab PO DAILY RF: 0 Referrals: Jinny Howard PA-C [Primary Care Provider] -
[2020-07-30] MEDS: TRAMADOL 50 MG PREPACK 1 BOTTLE MISC (21:49)
[2020-07-30] MEDS: DOXYCYCLINE HYCLATE 100 MG TABLET PO (21:49)
[2020-07-30 21:56] VITALS: BP 135/83; PULSE 67; RESP 16; O2SAT 97
== END 2020-07-30 22:04 | disposition home or self-care (01) ==
PROVIDERS: Emergency Provider Emergency Medicine; PCP Student in an Organized Health Care Education/Training Program
DX: L03.115 Cellulitis of right lower limb (principal); R50.9 Fever, unspecified
CPT/HCPCS: 36415; 73562; 80053; 81003; 81015; 83605; 83690; 84145; 85025; 85610; 85730; 87040; 96360; 96361; 99283; 99284

== ENCOUNTER 2020-08-01 20:08 | Inpatient (IN) | payer OTHER, SELFPAY ==
[2020-08-01] VITALS (9 sets, daily range): BP systolic 147–160; BP diastolic 74–90; PULSE 65–76; RESP 14; TEMP 36.9; O2SAT 97–100; BMI 25.1
--- NOTE | 2020-08-01 20:26 | DI.RAD.S_ITS ---
PROCEDURE: XR CHEST 1V INDICATIONS: suspected sepsis TECHNIQUE: One view of the chest was acquired. COMPARISON: [facility], CR, XR CHEST 1V, 11/24/2019, 12:31. FINDINGS: Surgical changes and devices: None. Lungs and pleura: Lungs are clear. No pleural effusions or pneumothorax. Mediastinum: Mediastinal contours appear normal. Heart size is normal. Bones and chest wall: No suspicious bony lesions. Overlying soft tissues appear unremarkable. IMPRESSION: No acute cardiopulmonary disease. Dictated by: Alyson Woodward M.D. on 08/01/2020 at 20:51 Approved by: Alyson Woodward M.D. on 08/01/2020 at 20:51
[2020-08-01] MEDS: SODIUM CHLORIDE 0.9% 1,000 ML 1000 ML IV (20:38)
[2020-08-01] MEDS: TET,DIPH,PERTUSS(ACELL),VAC/PF 0.5 ML SYRINGE IM (20:38)
[2020-08-01 20:43] LABS: Add Manual Diff / Slide Review NO; Basophils Absolute Auto 100 /uL (0-100); Basophils Percent Auto 0.7 % (0-2); Eosinophils Absolute Auto 200 /uL (0-450); Eosinophils Percent Auto 1.7 % (2-4); Hemoglobin 14.6 g/dL (13.5-17.5); Lymphocytes Absolute Auto 1400 /uL (1100-4500); Lymphocytes Percent Auto 14.6 % (25-40); Mean Corpuscular HGB Conc 33.2 % (30-36); Mean Corpuscular Hemoglobin 29.5 PG (26-34); Mean Corpuscular Volume 88.6 fL (80-100); Monocytes Absolute Auto 1000 /uL (0-900); Monocytes Percent Auto 9.7 % (3-14); Neutrophils Absolute Auto 7200 /uL (1500-7000); Neutrophils Percent Auto 73.3 % (50-75); Platelet Count 237 X10^3/uL (150-400); Red Blood Cell Count 4.97 X10^6/uL (4.5-5.9); Red Cell Distribution Width 13.9 % (11.6-14.8); White Blood Cell Count 9.8 X10^3/uL (4.5-11.0)
[2020-08-01 20:44] LABS: INR 1.1 (0.9-1.3)
[2020-08-01 20:46] LABS: PTT Partial Thromboplastin Tim 32 SECONDS (26.4-36.2)
[2020-08-01 20:47] LABS: Lactate (Lactic Acid) 1.2 mmol/L (0.7-2.1)
[2020-08-01 20:48] LABS: Alanine Aminotransferase 21 IU/L (<50); Albumin 4.3 g/dL (3.5-5.0); Albumin Globulin Ratio 1.3 (1.0-2.8); Alkaline Phosphatase 109 U/L (38-126); Aspartate Aminotransferase 26 IU/L (17-59); Bilirubin Total 0.4 mg/dL (0.2-1.3); Blood Urea Nitrogen 12 mg/dL (9-20); Calcium 9.2 mg/dL (8.4-10.2); Carbon Dioxide 26 mmol/L (22-32); Chloride 105 mmol/L (98-107); Estimated Glomerular Filt Rate > 60.0 mL/min (>60); Globulin 3.2 g/dL (1.7-4.1); Glucose 94 mg/dL (70-100); HEMOLYSIS < 15 (0-50); Lipase 61 U/L (23-300); Potassium 4.2 mmol/L (3.4-5.1); Sodium 137 mmol/L (137-145); Total Protein 7.5 g/dL (6.3-8.2)
--- NOTE | 2020-08-01 20:48 | PC.NURSE ---
Pt had a car door hit his velasquez on 07/30, small circular scrape is scabbed over. has encircling redness around wound and traveling up into medial thigh and distal down velasquez. circled with surgical pen on 07/30 and growing. pt reports increased pain and frequent fevers. denies SOB, HR <100. IV placed and labs including BC x 2 drawn. tetanus updated at todays visit. pt is currently taking doxy daily.
--- NOTE | 2020-08-01 20:50 | ED_ITS ---
HPI - Skin/Abscess/Foreign Bdy General Chief complaint: Skin/Abscess/Foreign Body Stated complaint: right leg infection not improving Time Seen by Provider: 08/01/20 20:14 Source: patient Mode of arrival: Ambulatory Limitations: no limitations History of Present Illness HPI narrative: Otherwise healthy 60-year-old man initially seen on July 30 for increasing redness and pain to a wound on the right anterior velasquez. He describes an accident where the car door swung out and because did deep puncture wound with minimal bleeding. The wound was so small he did not think much of it. 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 In the emergency room He was started on doxycycline which he has been taking. He notes that initially he did feel better however last night started to have more pain, a low-grade temperature, requiring more ibuprofen and Tylenol and today had some chills and significantly more pain in the right calf area. When deep pendant there clearly is more erythema around the lines drawn 48 hours ago. Related Data Home Medications Medication Instructions Recorded Confirmed cholecalciferol (vitamin D3) 10 10 mcg PO DAILY 06/09/20 08/01/20 mcg (400 unit) capsule [id number] acid 300 1 tab PO DAILY 06/09/20 08/01/20 mcg-lycopene 600 mcg-lutein 300 mcg tablet Previous Rx's Medication Instructions Recorded doxycycline hyclate 100 mg PO BID #14 tab 07/30/20 Allergies Allergy/AdvReac Type Severity Reaction Status Date / Time venom-honey bee Allergy Severe Unlisted Verified 08/01/20 20:21 [BEE VENOM (HONEY BEE)] pecan nut [PECAN NUT] Allergy Intermediate Verified 08/01/20 20:21 macadamia nut Allergy Intermediate Uncoded 06/09/20 08:06 Review of Systems Review of Systems Narrative: Still able to walk but increased pain in the right calf Low-grade fevers and chills, general myalgias No abdominal pain, vomiting, diarrhea No chest pain, dyspnea, palpitations ROS Unobtainable: All systems reviewed & are unremarkable except as noted in HPI and below Patient History Medical History Bilateral inguinal hernia BPH w urinary obs/LUTS Contusion of lower leg, right Dislocated patella Disorder of vestibular function Family history of prostate cancer in father Hemorrhoids History of Holter monitoring (~03/2017) Hypertension Impaired vision Kidney stones (~2001) Low back pain (~1999) Near syncope (~06/2017) Numbness and tingling Rathke's cyst Surgical History H/O cystoscopy H/O knee surgery History of colonoscopy History of hernia repair History of vasectomy S/P reconstruction of ligament of knee Family History Brother Age: 65 Hypertension Father Age: 93 Hypertension Prostate cancer UTI (urinary tract infection) Mother Age: 89 Crohn disease Sjogren's disease Hypertension Grandmother Stroke Grandfather Cancer Stroke Social History marital status: household members: spouse occupational status: employed Smoking Status: Former smoker alcohol intake: current substance use type: does not use caffeine: Yes Smoking Status: Former smoker alcohol intake frequency: 0-2 drinks per day Substance Use Type: does not use Exam Narrative Exam Narrative: General: Healthy appearing, in no acute distress. Able to give a complete and coherent history. Well-nourished well-developed HEENT: Moist mucous membranes, normal sclera with reactive pupils, Respiratory: Lungs are clear to auscultation, no wheezing no rales no rhonchi. Full and symmetrical air movement Cardiac: Regular rate and rhythm no murmurs no bruits Abdomen: Soft, nontender, good bowel tones, no flank pain Skin: Warm and dry, no rashes Neurologic: Grossly neurologically intact with no obvious asymmetries or abnormalities Extremities: Right velasquez with minor puncture wound just distal to the knee. Posterior calf tenderness, mild erythema along the anterior medial aspects of the calf and extending to the medial aspect of the knee. There is no inguinal adenopathy. No decreased range of motion at the knee or the ankle Psych: Cooperative, appropriate insight and affect Initial Vital Signs Initial Vital Signs: Vital Signs Pulse Rate 76 08/01/20 20:13 Pulse Oximetry 98 08/01/20 20:13 Course Orders Ordered: ED Orders 08/01/20 20:22 Complete Blood Count AUTO DIFF Stat Comprehensive Metabolic Panel Stat Lactate (Lactic Acid) Stat Lipase Stat Partial Thromboplastin Time Stat Procalcitonin Stat Prothrombin Time INR Stat 08/01/20 20:26 XR chest 1V Stat 08/01/20 20:43 Blood Culture Stat 08/01/20 20:57 CT LE RT w con Stat 08/01/20 22:58 COVID19 Stat Vancomycin HCl/Dextrose (Vancomycin) 1,500 mg in 300 mls @ 200 mls/hr IV NOW ONE Stop: 08/02/20 00:10 Last Admin: 08/01/20 22:54 Dose: 200 mls/hr Documented by: Discontinued Medications Diphtheria/Tetanus/Acell Pertussis (Tet,Diph,Pertuss(Acell),Vac/Pf 0.5 Ml Syringe) 0.5 ml IM .ONCE ONE Stop: 08/01/20 20:27 Last Admin: 08/01/20 20:38 Dose: 0.5 ml Documented by: NAN Sodium Chloride (Normal Saline 0.9%) 1,000 mls @ 1,000 mls/hr IV BOLUS ONE Stop: 08/01/20 21:25 Last Infusion: 08/01/20 22:00 Dose: 0 mls/hr Documented by: Admin: 08/01/20 20:38 Dose: 1,000 mls/hr Documented by: NAN Ceftriaxone Sodium/Dextrose (Rocephin) 2 gm in 50 mls @ 100 mls/hr IV NOW ONE Stop: 08/01/20 21:26 Last Infusion: 08/01/20 22:00 Dose: 0 mls/hr Documented by: Admin: 08/01/20 21:06 Dose: 100 mls/hr Documented by: NAN Ketorolac Tromethamine (Ketorolac 60 Mg/2 Ml Vial) 15 mg IV NOW ONE Stop: 08/01/20 22:42 Last Admin: 08/01/20 22:54 Dose: 15 mg Documented by: Oxycodone/Acetaminophen (Oxycodone/Acetaminophen 5/325 Tablet) 1 tab PO NOW ONE Stop: 08/01/20 22:42 Last Admin: 08/01/20 22:54 Dose: 1 tab Documented by: Vital Signs Vital signs: Vital Signs - 8 hr 08/01/20 20:13 08/01/20 20:14 08/01/20 20:15 Temperature 98.4 F Pulse Rate 76 75 75 Respiratory Rate 14 Blood Pressure 160/90 H 160/90 H Pulse Oximetry 98 98 99 MDM - Skin/Abscess/Foreign Bdy Medical Records Attestation: I reviewed the patient's medical records. Lab Data Attestation: I reviewed the patient's lab results. Result diagrams: 08/01/20 20:22 08/01/20 20:22 Labs: Lab Results 08/01/20 08/01/20 08/01/20 Range/Units 20:22 20:22 20:22 WBC 9.8 (4.5-11.0) X10^3/uL RBC 4.97 (4.5-5.9) X10^6/uL Hgb 14.6 (13.5-17.5) g/dL Hct 44.0 (41-53) % MCV 88.6 (80-100) fL MCH 29.5 (26-34) PG MCHC 33.2 (30-36) % RDW 13.9 (11.6-14.8) % Plt Count 237 (150-400) X10^3/uL Neut % (Auto) 73.3 (50-75) % Lymph % (Auto) 14.6 L (25-40) % [place] % (Auto) 9.7 (3-14) % Eos % (Auto) 1.7 L (2-4) % Baso % (Auto) 0.7 (0-2) % Neut # (Auto) 7200 H (0839-3198) /uL Lymph # (Auto) 1400 (0074-9043) /uL [place] # (Auto) 1000 H (0-900) /uL Eos # (Auto) 200 (0-450) /uL Baso # (Auto) 100 (0-100) /uL PT 13.0 H (10.1-12.7) SECONDS INR 1.1 (0.9-1.3) APTT 32 (26.4-36.2) SECONDS Sodium 137 (137-145) mmol/L Potassium 4.2 (3.4-5.1) mmol/L Chloride 105 (98-107) mmol/L Carbon Dioxide 26 (22-32) mmol/L BUN 12 (9-20) mg/dL Creatinine 0.92 (0.66-1.25) mg/dL Estimated GFR > 60.0 (>60) mL/min BUN/Creatinine Ratio 13.0 (6-22) Glucose 94 (70-100) mg/dL Lactate (0.7-2.1) mmol/L Calcium 9.2 (8.4-10.2) mg/dL Total Bilirubin 0.4 (0.2-1.3) mg/dL AST 26 (17-59) IU/L ALT 21 (<50) IU/L Alkaline Phosphatase 109 (38-126) U/L Total Protein 7.5 (6.3-8.2) g/dL Albumin 4.3 (3.5-5.0) g/dL Globulin 3.2 (1.7-4.1) g/dL Albumin/Globulin Ratio 1.3 (1.0-2.8) Lipase 61 (23-300) U/L Procalcitonin 0.09 (<0.5) ng/mL 08/01/20 Range/Units 20:22 WBC (4.5-11.0) X10^3/uL RBC (4.5-5.9) X10^6/uL Hgb (13.5-17.5) g/dL Hct (41-53) % MCV (80-100) fL MCH (26-34) PG MCHC (30-36) % RDW (11.6-14.8) % Plt Count (150-400) X10^3/uL Neut % (Auto) (50-75) % Lymph % (Auto) (25-40) % [place] % (Auto) (3-14) % Eos % (Auto) (2-4) % Baso % (Auto) (0-2) % Neut # (Auto) (6299-0565) /uL Lymph # (Auto) (4214-0791) /uL [place] # (Auto) (0-900) /uL Eos # (Auto) (0-450) /uL Baso # (Auto) (0-100) /uL PT (10.1-12.7) SECONDS INR (0.9-1.3) APTT (26.4-36.2) SECONDS Sodium (137-145) mmol/L Potassium (3.4-5.1) mmol/L Chloride (98-107) mmol/L Carbon Dioxide (22-32) mmol/L BUN (9-20) mg/dL Creatinine (0.66-1.25) mg/dL Estimated GFR (>60) mL/min BUN/Creatinine Ratio (6-22) Glucose (70-100) mg/dL Lactate 1.2 (0.7-2.1) mmol/L Calcium (8.4-10.2) mg/dL Total Bilirubin (0.2-1.3) mg/dL AST (17-59) IU/L ALT (<50) IU/L Alkaline Phosphatase (38-126) U/L Total Protein (6.3-8.2) g/dL Albumin (3.5-5.0) g/dL Globulin (1.7-4.1) g/dL Albumin/Globulin Ratio (1.0-2.8) Lipase (23-300) U/L Procalcitonin (<0.5) ng/mL Imaging Data CT LE: Radiologist's Impression: FINDINGS: Image quality: Excellent. Bones: There are dystrophic calcifications in the tissues just medial to the anterior tibial tubercle. There may be very slight cortical irregularity/cortical thinning of the underlying cortex. No full-thickness cortical loss. Normal mineralization. Mild degenerative tricompartment joint space loss and spurring at the knee joint. Soft tissues: Soft tissues overlying the fragmentation medial to the anterior tibial tubercle are irregularly thickened and demonstrate vague peripheral enhancement. There is probably mild periosteal fluid, however a discrete drainable fluid collection is not yet identified. There is moderate subcutaneous edema and mild skin thickening. IMPRESSION: 1. Along the medial aspect of the proximal tibial metaphysis, there is dystrophic calcification, potentially superficial cortical erosion, and overlying soft tissue phlegmon. 2. A discrete drainable abscess is not yet identified. 3. Early osteomyelitis cannot be excluded. Consider MRI with contrast. Dictated by: Alyson Woodward M.D. on 08/01/2020 at 21:54 MDM Narrative Medical decision making narrative: Labs are reviewed. No evidence of sepsis or dramatically increasing white count. However with increasing area of redness and increasing pain in the posterior calf along with a deep puncture wound I am concerned that he may be developing a deeper abscess and will obtain a CT scan of the calf to rule that out. While he is in the emergency department he is given a dose of ceftriaxone as well CT scan suggests dystrophic calcification potential subcortical erosion and soft tissue phlegmon without overt abscess and recommends MRI to confirm no osteomyelitis. In light of this, will add vancomycin to antibiotic regimen and request hospital admission overnight to facilitate MRI and help with decision choices regarding antibiotics and need for continued IV antibiotics. Findings are reviewed with patient and his and he is safe for transfer to the floor Care is reveiwed with Mr Pate and accepted for admission Discharge Plan Departure Patient Disposition: Admitted as Observation Clinical Impression: Cellulitis Qualifiers: Site of cellulitis: extremity Site of cellulitis of extremity: lower extremity Laterality: right Qualified Code(s): L03.115 - Cellulitis of right lower limb Abscess of skin or subcutaneous tissue Qualifiers: Site of cutaneous abscess: extremity Site of cutaneous abscess of extremity: lower extremity Laterality: right Qualified Code(s): L02.415 - Cutaneous abscess of right lower limb
--- NOTE | 2020-08-01 20:57 | DI.CT.S_ITS ---
PROCEDURE: CT LE RT W CON INDICATIONS: ? developing abscess deep calf muscle - post puncture wound TECHNIQUE: After the administration of intravenous contrast, 3 mm axial sections acquired of the right lower extremity , with coronal and sagittal reformats. COMPARISON: None. FINDINGS: Image quality: Excellent. Bones: There are dystrophic calcifications in the tissues just medial to the anterior tibial tubercle. There may be very slight cortical irregularity/cortical thinning of the underlying cortex. No full-thickness cortical loss. Normal mineralization. Mild degenerative tricompartment joint space loss and spurring at the knee joint. Soft tissues: Soft tissues overlying the fragmentation medial to the anterior tibial tubercle are irregularly thickened and demonstrate vague peripheral enhancement. There is probably mild periosteal fluid, however a discrete drainable fluid collection is not yet identified. There is moderate subcutaneous edema and mild skin thickening. IMPRESSION: 1. Along the medial aspect of the proximal tibial metaphysis, there is dystrophic calcification, potentially superficial cortical erosion, and overlying soft tissue phlegmon. 2. A discrete drainable abscess is not yet identified. 3. Early osteomyelitis cannot be excluded. Consider MRI with contrast. Dictated by: Alyson Woodward M.D. on 08/01/2020 at 21:54 Approved by: Alyson Woodward M.D. on 08/01/2020 at 22:12
[2020-08-01 21:05] LABS: Procalcitonin 0.09 ng/mL (<0.5)
[2020-08-01] MEDS: CEFTRIAXONE 2 GM/50 ML FROZ.PIGGY IV (21:06)
[2020-08-01] MEDS: KETOROLAC 60 MG/2 ML VIAL 15 MG IV (22:54)
[2020-08-01] MEDS: VANCOMYCIN 1,500 MG/300 ML PIGGYBACK 200 MG IV (22:54)
[2020-08-01] MEDS: OXYCODONE/ACETAMINOPHEN 5/325 TABLET 1 TAB PO (22:54)
[2020-08-01 23:25] LABS: COVID19 -Nasal RAPID Negative (Negative)
[2020-08-02] VITALS (8 sets, daily range): BP systolic 121–138; BP diastolic 75–85; PULSE 56–67; RESP 16–18; TEMP 36.1–37.5; O2SAT 96–99
--- NOTE | 2020-08-02 01:05 | PC.NURSE ---
Addendum entered by Ginny Robledo R.N. 08/02/20 02:22: ERROR: NOTE BELOW WRITTEN IN WRONG CHART. DISREGARD. Addendum entered by Ginny Robledo R.N. 08/02/20 02:18: Pt awoke soaked in sweat, c/o 7/10 pain in flank. Linens changed. Administered morphine IV. Oral temperature checked, WNL. Original Note: 0030 Pt arrived on unit via wheelchair, ambulated to bed as [id number]. He is AOx4, on room air and has a right antecubital PIV that is saline-locked. He denies pain for the moment. There is a small, scabbed abrasion just below the right anterior knee, mild erythema and increase warmth to the touch; pen-dotted by physician. SCD applied to left calf only r/t right calf pain when touched. Oriented patient to the unit and call-light. Informed of plan to monitor and provide antibiotics periodically as well as any labwork ordered by doctor.
--- NOTE | 2020-08-02 01:33 | DI.MRI.S_ITS ---
PROCEDURE: MR LOWER LEG RT WO/W CON INDICATIONS: Rule out osteomyelitis of right lower leg TECHNIQUE: Noncontrast coronal T1 spin echo and STIR, sagittal T1 spin echo with fat saturation and STIR, axial T1 spin echo and T2 fast spin echo with fat saturation. After the administration of contrast, axial/sagittal/coronal T1 spin echo with fat saturation through the right lower leg. COMPARISON: [facility], CT, CT LE RT W CON, 08/01/2020, 21:03. FINDINGS: Image quality: Excellent. Bones: The visualized bone marrow demonstrates normal signal on all sequences. Fragmented appearance of the medial portion of the tibial tuberosity is noted without significant marrow edema. The overlying cortex appears intact. No abnormal intraosseous enhancement. Soft tissues: There is significant soft tissue swelling and edema over anterior and medial aspect of lower leg with attenuated appearance of the medial patellar retinaculum near its insertion on medial patella. No discrete drainable fluid collection is seen. No enhancing soft tissue mass is seen. There is suggestion of longitudinal split involving patellar tendon extending to its insertion on tibial tuberosity with surrounding soft tissue edema. No full-thickness patellar tendon rupture. Visualized portion of quadriceps tendon is intact. IMPRESSION: 1. Longitudinal split involving patellar tendon extending to its insertion on anterior tibial tuberosity . No full-thickness patellar tendon rupture. 2. Fragmented appearance involving medial aspect of anterior tibial tuberosity at distal patellar tendon insertion with mild surrounding edema suggestive of avulsion injury in this area of indeterminate age. No significant marrow edema is seen. No other area of cortical irregularity is seen. No abnormal intraosseous enhancement. 3. Significant soft tissue edema and swelling along anterior and medial aspect of left lower leg. No discrete drainable abscess collection. No abnormal soft tissue or intramuscular enhancement. 4. Attenuated appearance of medial patellar retinaculum concerning for moderate grade partial-thickness tear. Dictated by: Chico Brunson M.D. on 08/02/2020 at 11:34 Approved by: Chico Brunson M.D. on 08/02/2020 at 11:55
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
[2020-08-02 05:44] LABS: Add Manual Diff / Slide Review NO; Basophils Absolute Auto 100 /uL (0-100); Basophils Percent Auto 1.1 % (0-2); Eosinophils Absolute Auto 200 /uL (0-450); Eosinophils Percent Auto 1.8 % (2-4); Hematocrit 41.8 % (41-53); Hemoglobin 14.3 g/dL (13.5-17.5); Lymphocytes Absolute Auto 1500 /uL (1100-4500); Lymphocytes Percent Auto 16.9 % (25-40); Mean Corpuscular HGB Conc 34.2 % (30-36); Mean Corpuscular Hemoglobin 30.2 PG (26-34); Mean Corpuscular Volume 88.4 fL (80-100); Monocytes Absolute Auto 800 /uL (0-900); Neutrophils Absolute Auto 6500 /uL (1500-7000); Neutrophils Percent Auto 71.2 % (50-75); Platelet Count 219 X10^3/uL (150-400); Red Blood Cell Count 4.73 X10^6/uL (4.5-5.9); White Blood Cell Count 9.1 X10^3/uL (4.5-11.0)
[2020-08-02] MEDS: HEPARIN 5,000 UNIT/ML VIAL 5000 UNIT SUBCUT ×2 (09:04→21:06)
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
[2020-08-02] MEDS: VANCOMYCIN 1,500 MG/300 ML PIGGYBACK 200 MG IV ×2 (12:00→22:50)
--- NOTE | 2020-08-02 14:57 | PC.NURSE ---
VSS. Denies pain. Call light within reach. 1 person SBA. IV Vancomycin infusing. Patient reported feeling pressure behind his eyes and a slight headache with infusion at rate of 200ml/hr. Adjusted rate to 150ml/hr and his symptoms subsided. Left leg swelling has not extended. MRI of left leg completed this morning at 10:30.
[2020-08-02] MEDS: CEFTRIAXONE 2 GM/50 ML FROZ.PIGGY IV (21:11)
[2020-08-02] MEDS: SODIUM CHLORIDE 0.9% FLUSH 10 ML IV (22:49)
[2020-08-03] VITALS (11 sets, daily range): BP systolic 118–142; BP diastolic 74–83; PULSE 55–65; RESP 15–19; TEMP 36.1–37; O2SAT 96–99
[2020-08-03] MEDS: HEPARIN 5,000 UNIT/ML VIAL 5000 UNIT SUBCUT ×2 (08:43→21:15)
--- NOTE | 2020-08-03 09:00 | P.PN_ITS ---
Subjective Subjective Date Patient Seen: 08/03/20 Time Patient Seen: 09:01 Interval history: 60-year-old male patient who sustained a right lower leg injury with a small puncture wound that over several days developed cellulitis and was started on doxycycline on 07/30/2020. The patient return to the ER with increasing redness pain and swelling and admitted with right lower leg cellulitis after failing outpatient antibiotic therapy. There was some concern for osteomyelitis based on his initial CT, however the MRI returned negative. He reports improved redness, swelling, and pain today but this is not completely resolved. He denies any fevers, chills, shortness of breath, palpitations, nausea, vomiting, or abdominal pain. Exam Vital Signs (past 8 hours): - 08/03/20 04:00 08/03/20 05:44 08/03/20 07:35 Temperature 97.0 F L 98.3 F Pulse Rate 61 55 L Respiratory Rate 16 15 Blood Pressure 134/78 140/82 Pulse Oximetry 98 98 97 Oxygen Delivery Method Room Air Oxygen Flow Rate 0 Narrative Exam Narrative: GENERAL APPEARANCE: well developed, well nourished, in no acute distress. SKIN: [place], warm and dry, no visible lesions, rashes, ulcerations or petechiae. HEART: regular rate and rhythm, S1-S2, no murmur, no rubs or gallops, brisk capillary refill, no edema LUNGS: clear to auscultation bilaterally, no coarseness crackles or wheezing, no cough present CHEST: Symmetrical movement, no accessory muscle use, good tidal volume. ABDOMEN: Soft, no distention, no epigastric or abdominal abdominal tenderness, no guarding or peritoneal signs, no organomegaly, active bowel tones. EXTREMITIES: area of RLE erythema much improved, but now located more on the calf. demarcated area shows much diminished erythema. There is mild warmth compared to the contralateral leg. R knee mildly tender medially, no swelling or effusions. NEUROLOGIC: AAO x4, no focal neurologic deficits, cranial nerves II-XII grossly intact, sensation intact to light touch, hearing grossly normal to speech. PSYCH: Briskly responsive, linear thought process, cooperative, appropriate with stable behavior Objective Imaging MRI RLE: Radiologist's impression: 1. Longitudinal split involving patellar tendon extending to its insertion on anterior tibial tuberosity . No full-thickness patellar tendon rupture. 2. Fragmented appearance involving medial aspect of anterior tibial tuberosity at distal patellar tendon insertion with mild surrounding edema suggestive of avulsion injury in this area of indeterminate age. No significant marrow edema is seen. No other area of cortical irregularity is seen. No abnormal intraosseous enhancement.v 3. Significant soft tissue edema and swelling along anterior and medial aspect of left lower leg. No discrete drainable abscess collection. No abnormal soft tissue or intramuscular enhancement.4. Attenuated appearance of medial patellar retinaculum concerning for moderate grade partial-thickness tear. Labs Result Diagrams: 08/02/20 05:25 08/01/20 20:22 [facility] Medical History Bilateral inguinal hernia BPH w urinary obs/LUTS Contusion of lower leg, right Disorder of vestibular function Family history of prostate cancer in father Hemorrhoids Hypertension Impaired vision Kidney stones (~2001) Low back pain (~1999) Near syncope (~06/2017) Numbness and tingling Rathke's cyst Surgical History H/O cystoscopy H/O knee surgery History of colonoscopy History of hernia repair History of vasectomy S/P reconstruction of ligament of knee Family History Brother Age: 65 Hypertension Father Age: 93 Hypertension Prostate cancer UTI (urinary tract infection) Mother Age: 89 Crohn disease Sjogren's disease Hypertension Grandmother Stroke Grandfather Cancer Stroke Social History marital status: household members: spouse occupational status: employed Smoking Status: Former smoker alcohol intake: current substance use type: does not use caffeine: Yes Assessment & Plan Assessment & Plan narrative: 60-year-old male patient who sustained a right lower leg injury with a small puncture wound that over several days developed cellulitis and was started on doxycycline on 07/30/2020. The patient return to the ER with increasing redness pain and swelling and admitted with right lower leg cellulitis after failing outpatient antibiotic therapy. 1. Acute cellulitis medial right lower leg, present on admission, active,improving. -the patient sustained a leg wound 4-5 days ago and developed a subsequent cellulitis seen in the ER and started on doxycycline. Patient returns today with worsening symptoms despite antibiotic treatment. -imaging finds medial/proximal tibia dystrophic calcification possibly superficial cortical erosion underlying soft tissue phlegmon, no abscess. -patient started vancomycin with pharmacy to dose 1st dose of 1500 mg administered in the emergency department, ordered Rocephin 2 g IV daily, 1st dose administered in the emergency department. -continue ceftriaxone and vancomycin given failure of outpatient therapy. -ordered MRI of the right lower extremity which did not reveal evidence of osteomyelitis. 1. Longitudinal split involving patellar tendon extending to its insertion on anterior tibial tuberosity . No full-thickness patellar tendon rupture. 2. Fragmented appearance involving medial aspect of anterior tibial tuberosity at distal patellar tendon insertion with mild surrounding edema suggestive of avulsion injury in this area of indeterminate age. No significant marrow edema is seen. No other area of cortical irregularity is seen. No abnormal intraosseous enhancement.v 3. Significant soft tissue edema and swe lling along anterior and medial aspect of left lower leg. No discrete drainable abscess collection. No abnormal soft tissue or intramuscular enhancement.4. Attenuated appearance of medial patellar retinaculum concerning for moderate grade partial-thickness tear. -Discussed with orthopedic surgery regarding his partial thickness patellar pathologies, whom recommended supportive care and if pain continues outpatient evaluation. 2. Hypertension, chronic, stable. -upon arrival to the ER the patient's blood pressure 160/90 and subsequently on the floor 132/84. Blood pressure likely elevated due to pain and situation. -Patient presently taking no medications for blood pressure management. -will monitor blood pressures. Changed to inpatient status Dispo: anticipate discharge home tomorrow if continued improvement in cellulitis.
[2020-08-03 12:00] LABS: Vancomycin Trough 8.2 ug/mL (10-20)
[2020-08-03] MEDS: VANCOMYCIN 1,500 MG/300 ML PIGGYBACK 200 MG IV (12:06)
[2020-08-03] MEDS: VANCOMYCIN TROUGH 1 REQUEST MISC (12:07)
[2020-08-03] MEDS: SODIUM CHLORIDE 0.9% FLUSH 10 ML IV (12:07)
[2020-08-03] MEDS: VANCOMYCIN 1,250 MG/250 ML PIGGYBACK 250 MG IV (19:55)
[2020-08-03] MEDS: LACTOBACILLUS ACIDOPHILUS TABLET 1 EACH PO (21:14)
[2020-08-03] MEDS: CEFTRIAXONE 2 GM/50 ML FROZ.PIGGY IV (22:34)
--- NOTE | 2020-08-03 23:01 | PC.NURSE ---
BP elevated at 142/ 73. All other vitals stable. Denies pain. Right leg marked to indicate of cellulites region, no redness or warmth this shift. Compalined of some abdominal pain and requested a probiotic which has not been ordered and was given. at bedside this evening. Likely discharge tomorrow.
[2020-08-04] VITALS: BP 138/90; PULSE 56; RESP 18; TEMP 36.6; O2SAT 96
[2020-08-04 01:00] VITALS: O2SAT 96
[2020-08-04] MEDS: VANCOMYCIN 1,250 MG/250 ML PIGGYBACK 250 MG IV (03:13)
[2020-08-04 04:58] VITALS: BP 118/74; PULSE 60; RESP 18; TEMP 36.4; O2SAT 95
[2020-08-04 05:00] VITALS: O2SAT 95
[2020-08-04 07:16] VITALS: BP 122/81; PULSE 61; RESP 16; TEMP 36.6; O2SAT 97
[2020-08-04 07:19] LABS: Blood Urea Nitrogen 16 mg/dL (9-20); Carbon Dioxide 27 mmol/L (22-32); Chloride 104 mmol/L (98-107); Estimated Glomerular Filt Rate > 60.0 mL/min (>60); Glucose 106 mg/dL (70-100); HEMOLYSIS < 15 (0-50); Potassium 4.1 mmol/L (3.4-5.1); Sodium 136 mmol/L (137-145)
[2020-08-04 07:40] VITALS: O2SAT 96
[2020-08-04] MEDS: HEPARIN 5,000 UNIT/ML VIAL 5000 UNIT SUBCUT (09:07)
[2020-08-04] MEDS: LACTOBACILLUS ACIDOPHILUS TABLET 1 EACH PO (09:44)
[2020-08-04] MEDS: SODIUM CHLORIDE 0.9% FLUSH 10 ML IV (09:44)
[2020-08-04 10:50] LABS: Vancomycin Trough 15.9 ug/mL (10-20)
--- NOTE | 2020-08-04 11:17 | CM.DPC ---
DCP Discharge home Per MD, pt switched to oral abx and medications and medically stable to d/c home today via spouse and no identified barriers to discharge. Per RN, no concerns at this time. Plan: Patient to d/c home via spouse POV today and no further SW needs at this time. JUDITH Myers
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
--- NOTE | 2020-08-04 13:47 | PC.NURSE ---
Discharge: Pt feels ready to d/c home. Rt lower leg is much improved. No use of pain meds. Up on leg indep. w/no use of assistive devices. MD saw pt and gave instructions. Reviewed d/c packet. Questions answered. Pt d/c home via auto w/spouse.
== END 2020-08-04 11:50 | disposition home or self-care (01) | DRG 603 ==
LOC: ED 22:55 → AC 23:32
PROVIDERS: Internal Medicine; Admitting Provider Nurse Practitioner Adult Health; Emergency Provider Emergency Medicine; PCP Student in an Organized Health Care Education/Training Program; Referring Provider Emergency Medicine; Visit Provider Nurse Practitioner Adult Health
DX: L03.115 Cellulitis of right lower limb (principal); I10 Essential (primary) hypertension; Z87.891 Personal history of nicotine dependence; Z20.822 Contact with and (suspected) exposure to COVID-19; S81.831A Puncture wound without foreign body, right lower leg, initial encounter; X58.XXXA Exposure to other specified factors, initial encounter; Z23 Encounter for immunization
CPT/HCPCS: 36415; 71045; 73562; 73701; 73720; 80048; 80053; 80202; 81003; 81015; 83605; 83690; 84145; 85025; 85610; 85730; 87040; 87635; 90471; 96360; 96361; 96365; 96366; 96367; 96375; 99283; 99284; C9803; 90715; A9579; J0696; J1644; J1885; Q9967

== ENCOUNTER 2020-10-01 16:51 | Emergency (ER) | payer OTHER, SELFPAY ==
[2020-08-02 08:54] VITALS: BMI 25.1
--- NOTE | 2020-10-01 16:55 | DI.RAD.S_ITS ---
PROCEDURE: XR CHEST 1V INDICATIONS: chest pain TECHNIQUE: One view of the chest was acquired. COMPARISON: [facility], CR, XR CHEST 1V, 08/01/2020, 20:30. FINDINGS: Surgical changes and devices: None. Lungs and pleura: Lungs are clear. No pleural effusions or pneumothorax. Mediastinum: Mediastinal contours appear normal. Heart size is normal. Bones and chest wall: No suspicious bony lesions. Overlying soft tissues appear unremarkable. IMPRESSION: No acute process. Dictated by: Gardenia Mccall M.D. on 10/01/2020 at 17:44 Approved by: Gardenia Mccall M.D. on 10/01/2020 at 17:45
[2020-10-01 16:59] VITALS: BP 156/96; PULSE 65; RESP 18; TEMP 36.6; O2SAT 97
[2020-10-01 17:21] LABS: Add Manual Diff / Slide Review NO; Basophils Absolute Auto 100 /uL (0-100); Basophils Percent Auto 1.4 % (0-2); Eosinophils Absolute Auto 100 /uL (0-450); Eosinophils Percent Auto 1.7 % (2-4); Hematocrit 44.3 % (41-53); Hemoglobin 15.3 g/dL (13.5-17.5); Lymphocytes Absolute Auto 1500 /uL (1100-4500); Lymphocytes Percent Auto 21.3 % (25-40); Mean Corpuscular HGB Conc 34.4 % (30-36); Mean Corpuscular Hemoglobin 30.2 PG (26-34); Mean Corpuscular Volume 87.6 fL (80-100); Monocytes Absolute Auto 500 /uL (0-900); Monocytes Percent Auto 7.7 % (3-14); Neutrophils Absolute Auto 4800 /uL (1500-7000); Neutrophils Percent Auto 67.9 % (50-75); Platelet Count 230 X10^3/uL (150-400); Red Blood Cell Count 5.06 X10^6/uL (4.5-5.9); Red Cell Distribution Width 13.7 % (11.6-14.8)
[2020-10-01 17:28] LABS: INR 1.1 (0.9-1.3); Prothrombin Time 12.5 SECONDS (10.1-12.7)
[2020-10-01 17:30] LABS: PTT Partial Thromboplastin Tim 32 SECONDS (26.4-36.2)
[2020-10-01 17:36] LABS: Alanine Aminotransferase 21 IU/L (<50); Albumin 4.1 g/dL (3.5-5.0); Albumin Globulin Ratio 1.4 (1.0-2.8); Alkaline Phosphatase 116 U/L (38-126); Aspartate Aminotransferase 28 IU/L (17-59); BUN Creatinine Ratio 21.6 (6-22); Bilirubin Total 0.5 mg/dL (0.2-1.3); Blood Urea Nitrogen 19 mg/dL (9-20); Calcium 9.5 mg/dL (8.4-10.2); Carbon Dioxide 27 mmol/L (22-32); Chloride 103 mmol/L (98-107); Creatine Kinase 119 U/L (55-170); Estimated Glomerular Filt Rate > 60.0 mL/min (>60); Glucose 90 mg/dL (70-100); HEMOLYSIS < 15 (0-50); Lipase 80 U/L (23-300); Magnesium 1.9 mg/dL (1.6-2.3); Potassium 4.3 mmol/L (3.4-5.1); Sodium 137 mmol/L (137-145); Total Protein 7.1 g/dL (6.3-8.2)
[2020-10-01 17:47] LABS: Troponin I < 0.012 ng/mL (0.01-0.034)
[2020-10-01 17:51] LABS: CKMB % Relative Index 1.3 % (1.5-5.0)
[2020-10-01 18:07] VITALS: PULSE 67; RESP 17; O2SAT 97
[2020-10-01 18:28] LABS: COVID19 -Nasal RAPID Negative (Negative)
[2020-10-01 18:30] VITALS: PULSE 64; RESP 24; O2SAT 96
[2020-10-01 18:40] VITALS: BP 128/80; PULSE 61; RESP 21; O2SAT 99
--- NOTE | 2020-10-01 18:55 | ED_ITS ---
HPI - SOB/Dyspnea General Chief Complaint: Shortness of Breath/Dyspnea Stated Complaint: fatigue, concern of heart problems Time Seen by Provider: 10/01/20 18:03 Source: patient Mode of arrival: Ambulatory Limitations: no limitations History of Present Illness HPI Narrative: The patient complains of dyspnea, only with exertion. He is a contractor, quite physically active. He denies recent illness. His no headac he, sore throat, or URI symptoms. He has no chest discomfort. He is a nonsmoker. He has no proven cardiac or respiratory disease. He has received Chaologix COVID-19 vaccine x2, the 2nd injection about 3 weeks ago. He felt fine for the initial 5 days. Dyspnea with exertion started 6 7 days after the injection. He feels an element of fatigue. He does not otherwise feel ill. He contacted his doctor couple times. His doctor asked him to come to the ER for cardiac evaluation. He is on no medications. There is a family history of cardiac disease. Related Data Home Medications Medication Instructions Recorded Confirmed cholecalciferol (vitamin D3) 10 10 mcg PO DAILY 06/09/20 08/01/20 mcg (400 unit) capsule vqvjxhru-qrs-doitp acid 300 1 tab PO DAILY 06/09/20 08/01/20 mcg-lycopene 600 mcg-lutein 300 mcg tablet Previous Rx's Medication Instructions Recorded cephalexin 500 mg PO TID #30 cap 08/04/20 Allergies Allergy/AdvReac Type Severity Reaction Status Date / Time venom-honey bee Allergy Severe Unlisted Verified 08/01/20 20:21 [BEE VENOM (HONEY BEE)] pecan nut [PECAN NUT] Allergy Intermediate Verified 08/01/20 20:21 macadamia nut Allergy Intermediate Uncoded 06/09/20 08:06 Review of Systems Constitutional Constitutional: Denies chills, Denies fever(s), Denies headache(s) and Denies malaise Eyes Eyes: Denies change in vision ENT Ears, Nose, Mouth, and Throat: Denies headache(s), Denies sinus pain and Denies sore throat Cardiovascular Cardiovascular: Denies chest pain, Denies pedal edema, Denies palpitations and Reports dyspnea on exertion Respiratory Respiratory: Denies chest congestion, Denies cough and Reports dyspnea on exertion Gastrointestinal Gastrointestinal: Denies abdominal pain, Denies change in bowel habits, Denies diarrhea, Denies nausea and Denies vomiting Musculoskeletal Musculoskeletal: Denies arthralgias Integumentary/Breasts Skin/Breast: Denies pruritus, Denies erythema and Denies rash Neurologic Neurologic: Denies confusion and Denies headache(s) Psychiatric Psychiatric: Denies anxiety, Denies confusion and Denies depression Endocrine Endocrine: Denies palpitations Patient History Medical History Bilateral inguinal hernia BPH w urinary obs/LUTS Contusion of lower leg, right Disorder of vestibular function Family history of prostate cancer in father Hemorrhoids Hypertension Impaired vision Kidney stones (~2001) Low back pain (~1999) Near syncope (~06/2017) Numbness and tingling Rathke's cyst Surgical History H/O cystoscopy H/O knee surgery History of colonoscopy History of hernia repair History of vasectomy S/P reconstruction of ligament of knee Family History Brother Age: 65 Hypertension Father Age: 93 Hypertension Prostate cancer UTI (urinary tract infection) Mother Age: 89 Crohn disease Sjogren's disease Hypertension Grandmother Stroke Grandfather Cancer Stroke Social History marital status: household members: spouse occupational status: employed Smoking Status: Former smoker alcohol intake: current substance use type: does not use caffeine: Yes Smoking Status: Former smoker alcohol intake frequency: 0-2 drinks per day Substance Use Type: does not use Exam Initial Vital Signs Initial Vital Signs: Vital Signs Temperature 97.8 F 10/01/20 16:59 Pulse Rate 65 10/01/20 16:59 Respiratory Rate 18 10/01/20 16:59 Blood Pressure 156/96 H 10/01/20 16:59 Pulse Oximetry 97 10/01/20 16:59 Const General: cooperative and well developed Nutritional Appearance: well nourished [facility] Head: normocephalic and atraumatic Throat: posterior oropharynx normal Eyes General: appearance normal, both eyes and all related structures Eyelids: eyelids normal Conjunctivae: conjunctivae normal Sclera: sclerae normal Pupils: PERRL EOM: EOM intact bilaterally Neck Neck: normal visual inspection, trachea midline, No lymphadenopathy and No JVD Chest Chest: normal inspection of the chest and normal palpation of entire chest wall Resp Auscultation: clear to auscultation bilaterally Cardio Rate: regular rate Rhythm: regular rhythm Heart Sounds: S1 normal, S2 normal, no click, no gallops, no murmurs and no rubs Pulses: normal peripheral pulses GI Inspection: non-distended Palpation: soft, no hepatosplenomegaly, No guarding, No pulsatile mass, No splenomegaly and No tender Auscultation: normal bowel sounds Back/Spine/Pelvis Back: normal to inspection and No back tenderness Skin General: no rashes or lesions noted Neuro General: patient alert, patient oriented x3, gait normal and no focal motor deficits Speech: speech normal Extrem General: No edema Psych Mental Status: mental status grossly normal Course Course Course Narrative: The patient has no findings suggesting an acute coronary situation. Symptoms seem to be healing to his COVID injection. I told him I suspect symptoms will resolve over time. Also, I noted this is external drug. We really do not know what to expect from side effects. He does have family history of a cardiac problem. He is considering following up with his PCM, and seeking a stress test. I agree, stress test would be a good plan. Orders Ordered: ED Orders 10/01/20 16:55 XR chest 1V Stat EKG-12 Lead Stat 10/01/20 17:14 Complete Blood Count AUTO DIFF Stat Comprehensive Metabolic Panel Stat Lipase Stat Magnesium Stat Partial Thromboplastin Time Stat Prothrombin Time INR Stat Troponin & CK Cardiac Panel Stat 10/01/20 17:35 COVID19 -Nasal swab/Pre-Proc Stat Vital Signs Vital signs: Vital Signs - 8 hr 10/01/20 16:59 10/01/20 18:07 10/01/20 18:30 Temperature 97.8 F Pulse Rate 65 67 64 Respiratory Rate 18 17 24 Blood Pressure 156/96 H Pulse Oximetry 97 97 96 10/01/20 18:40 Temperature Pulse Rate 61 Respiratory Rate 21 Blood Pressure 128/80 Pulse Oximetry 99 MDM - SOB/Dyspnea Lab Data Result diagrams: 10/01/20 17:14 10/01/20 17:14 Labs: Lab Results 10/01/20 10/01/20 10/01/20 Range/Units 17:14 17:14 17:14 WBC 7.0 (4.5-11.0) X10^3/uL RBC 5.06 (4.5-5.9) X10^6/uL Hgb 15.3 (13.5-17.5) g/dL Hct 44.3 (41-53) % MCV 87.6 (80-100) fL MCH 30.2 (26-34) PG MCHC 34.4 (30-36) % RDW 13.7 (11.6-14.8) % Plt Count 230 (150-400) X10^3/uL Neut % (Auto) 67.9 (50-75) % Lymph % (Auto) 21.3 L (25-40) % Sierra % (Auto) 7.7 (3-14) % Eos % (Auto) 1.7 L (2-4) % Baso % (Auto) 1.4 (0-2) % Neut # (Auto) 4800 (0825-5480) /uL Lymph # (Auto) 1500 (3262-6604) /uL Sierra # (Auto) 500 (0-900) /uL Eos # (Auto) 100 (0-450) /uL Baso # (Auto) 100 (0-100) /uL PT 12.5 (10.1-12.7) SECONDS INR 1.1 (0.9-1.3) APTT 32 (26.4-36.2) SECONDS Sodium 137 (137-145) mmol/L Potassium 4.3 (3.4-5.1) mmol/L Chloride 103 (98-107) mmol/L Carbon Dioxide 27 (22-32) mmol/L BUN 19 (9-20) mg/dL Creatinine 0.88 (0.66-1.25) mg/dL Estimated GFR > 60.0 (>60) mL/min BUN/Creatinine Ratio 21.6 (6-22) Glucose 90 (70-100) mg/dL Calcium 9.5 (8.4-10.2) mg/dL Magnesium 1.9 (1.6-2.3) mg/dL Total Bilirubin 0.5 (0.2-1.3) mg/dL AST 28 (17-59) IU/L ALT 21 (<50) IU/L Alkaline Phosphatase 116 (38-126) U/L Total Creatine Kinase 119 (55-170) U/L CK-MB (CK-2) 1.50 (<2.37) ng/mL CK-MB (CK-2) Rel Index 1.3 L (1.5-5.0) % Troponin I < 0.012 (0.01-0.034) ng/mL Total Protein 7.1 (6.3-8.2) g/dL Albumin 4.1 (3.5-5.0) g/dL Globulin 3.0 (1.7-4.1) g/dL Albumin/Globulin Ratio 1.4 (1.0-2.8) Lipase 80 (23-300) U/L SARS-CoV-2 (PCR) (Negative) 10/01/20 Range/Units 17:35 WBC (4.5-11.0) X10^3/uL RBC (4.5-5.9) X10^6/uL Hgb (13.5-17.5) g/dL Hct (41-53) % MCV (80-100) fL MCH (26-34) PG MCHC (30-36) % RDW (11.6-14.8) % Plt Count (150-400) X10^3/uL Neut % (Auto) (50-75) % Lymph % (Auto) (25-40) % Sierra % (Auto) (3-14) % Eos % (Auto) (2-4) % Baso % (Auto) (0-2) % Neut # (Auto) (2238-9612) /uL Lymph # (Auto) (5049-1277) /uL Sierra # (Auto) (0-900) /uL Eos # (Auto) (0-450) /uL Baso # (Auto) (0-100) /uL PT (10.1-12.7) SECONDS INR (0.9-1.3) APTT (26.4-36.2) SECONDS Sodium (137-145) mmol/L Potassium (3.4-5.1) mmol/L Chloride (98-107) mmol/L Carbon Dioxide (22-32) mmol/L BUN (9-20) mg/dL Creatinine (0.66-1.25) mg/dL Estimated GFR (>60) mL/min BUN/Creatinine Ratio (6-22) Glucose (70-100) mg/dL Calcium (8.4-10.2) mg/dL Magnesium (1.6-2.3) mg/dL Total Bilirubin (0.2-1.3) mg/dL AST (17-59) IU/L ALT (<50) IU/L Alkaline Phosphatase (38-126) U/L Total Creatine Kinase (55-170) U/L CK-MB (CK-2) (<2.37) ng/mL CK-MB (CK-2) Rel Index (1.5-5.0) % Troponin I (0.01-0.034) ng/mL Total Protein (6.3-8.2) g/dL Albumin (3.5-5.0) g/dL Globulin (1.7-4.1) g/dL Albumin/Globulin Ratio (1.0-2.8) Lipase (23-300) U/L SARS-CoV-2 (PCR) Negative (Negative) Imaging Data Chest x-ray: Radiologist's Impression: CXR: Normal. ECG Data Attestation: I personally reviewed and interpreted this ECG as follows: (Normal sinus rhythm rate 61 beats per minute. LAD. Incomplete RBBB. No acute ST T wave changes. No ectopy.) Discharge Plan Departure Patient Disposition: Home Clinical Impression: Dyspnea on exertion Instructions: DI for Shortness of Breath Activity Restrictions/Additional Instructions: As we discussed, your symptoms may well be associated with COVID-19 vaccine. Our workup in the ER shows no indication of cardiac disease. Remember this is an experimental medication. If that is the case you should eventually feel better without concern. However, given your family history, you may want to discuss a cardiac stress test with your primary care doctor. Your blood pressure monitoring here were a bit elevated, follow-up with her doctor regarding her blood pressure also. Return to the ER if symptoms escalate. Prescriptions: No Action cholecalciferol (vitamin D3) 10 mcg (400 unit) capsule 10 mcg PO DAILY RF: 0 Men 50 Plus Multivitamin 300-600-300 mcg tablet 1 tab PO DAILY RF: 0 cephalexin 500 mg capsule 500 mg PO TID Qty: 30 RF: 0 Referrals: Jinny Howard PA-C [Primary Care Provider] -
== END 2020-10-01 19:07 | disposition home or self-care (01) ==
PROVIDERS: Emergency Medicine; Emergency Provider Emergency Medicine; PCP Student in an Organized Health Care Education/Training Program
DX: R06.00 Dyspnea, unspecified (principal); Z20.822 Contact with and (suspected) exposure to COVID-19
CPT/HCPCS: 36415; 71045; 80053; 82550; 82553; 83690; 83735; 84484; 85025; 85610; 85730; 87635; 93005; 99284; C9803

== ENCOUNTER → 2020-11-01 08:08 | Outpatient (CLI) | payer OTHER, SELFPAY ==
[2020-08-02 08:54] VITALS: BMI 25.1
[2020-11-01 11:51] LABS: COVID19 -Nasal RAPID Negative (Negative)
== END ==
PROVIDERS: PCP Student in an Organized Health Care Education/Training Program; Visit Provider Physician Assistant
DX: Z01.812 Encounter for preprocedural laboratory examination (principal); Z20.822 Contact with and (suspected) exposure to COVID-19
CPT/HCPCS: 87635

== ENCOUNTER → 2020-11-03 15:15 | Outpatient (CLI) | payer OTHER, SELFPAY ==
[2020-08-02 08:54] VITALS: BMI 25.1
--- NOTE | 2020-11-03 15:16 | DI.NM.S_ITS ---
PROCEDURE: NM EXERCISE TREADMILL NON NUC COMPARISON: None. INDICATIONS: Dyspnea, unspecified FINDINGS: The patient exercised for 9 minutes and 39 seconds, reaching 10.1 METs, LUIS M -8%. 101% of maximum predicted heart rate achieved. Appropriate BP response to exercise. No angina during the study. No diagnostic ST changes concerning for ischemia. No ectopy. IMPRESSION: Low risk, normal treadmill ECG only stress test with above average exercise tolerance and no angina. Dictated by: Nilay Canales MD on 11/03/2020 at 17:11 Approved by: Nilay Canales MD on 11/03/2020 at 17:12
== END ==
PROVIDERS: PCP Student in an Organized Health Care Education/Training Program; Referring Provider Student in an Organized Health Care Education/Training Program; Visit Provider Student in an Organized Health Care Education/Training Program
DX: R06.00 Dyspnea, unspecified (principal)
CPT/HCPCS: 93017

== ENCOUNTER 2024-02-27 21:00 | Emergency (ER) | payer OTHER, SELFPAY ==
[2020-08-02 08:54] VITALS: BMI 25.1
[2024-02-27 21:00] VITALS: BP 152/83; PULSE 67; RESP 16; TEMP 36.6; O2SAT 98; BMI 24.7
[2024-02-27 21:08] VITALS: PULSE 66; RESP 18; O2SAT 98
--- NOTE | 2024-02-27 21:11 | ED.ALLEREA ---
HPI - Allergic Reaction General Chief complaint: Allergic Reaction Stated complaint: allergic reaction Time Seen by Provider: 02/27/24 21:02 History of Present Illness HPI narrative: 63-year-old male presents for possible allergic reaction. Patient states that he ate clams, muscles, oysters, and polenta with a cream sauce at dinner. Patient states that eats lots of seafood but the polenta and sauce were different to him. Shortly after leaving the restaurant patient felt very flushed and vomited. Prior to coming to the ED patient took 25mg benadryl. Denies lip/tongue swelling, shortness of breath. Nausea now resolved after vomiting. Patient states he mainly feels flushed. Related Data Home Medications Medication Instructions Recorded Confirmed cholecalciferol (vitamin D3) 10 10 mcg PO DAILY 06/09/20 08/01/20 mcg (400 unit) capsule [id number] 300 mcg-K 60 1 tab PO DAILY 06/09/20 08/01/20 mcg-lycop 600 mcg-lutein 300 mcg tablet (Men 50 Plus Multivitamin) Previous Rx's Medication Instructions Recorded alfuzosin 10 mg tablet,extended 10 mg PO DAILY #90 tabs 10/06/20 release 24 hr (Uroxatral) epinephrine 0.3 mg/0.3 mL 0.3 mg (0.3 mL) IM Q5-15M PRN 02/27/24 injection, auto-injector (Auvi-Q) anaphylaxis #2 ea Allergies Allergy/AdvReac Type Severity Reaction Status Date / Time venom-honey bee Allergy Severe Unlisted Verified 02/27/24 21:19 [BEE VENOM (HONEY BEE)] pecan nut [PECAN NUT] Allergy Intermediate Verified 02/27/24 21:19 macadamia nut Allergy Intermediate Uncoded 02/27/24 21:19 Patient History Medical History Contusion of lower leg, right Family history of prostate cancer in father BPH w urinary obs/LUTS Hypertension Disorder of vestibular function Impaired vision Low back pain (~1999) Kidney stones (~2001) Hemorrhoids Near syncope (~06/2017) Numbness and tingling Rathke's cyst Bilateral inguinal hernia Surgical History History of hernia repair H/O cystoscopy History of colonoscopy H/O knee surgery History of vasectomy S/P reconstruction of ligament of knee Family History Brother Age: 68 Hypertension Father Age: 96 Hypertension Prostate cancer UTI (urinary tract infection) Mother Age: 92 Crohn disease Sjogren's disease Hypertension Grandmother Stroke Grandfather Cancer Stroke Social History marital status: household members: spouse occupational status: employed Smoking Status: Former smoker alcohol intake: current substance use type: does not use caffeine: Yes Smoking Status: Former smoker alcohol intake frequency: 0-2 drinks per day Substance Use Type: does not use Exam Initial Vital Signs Initial Vital Signs: Vital Signs Temperature 97.8 F 02/27/24 21:00 Pulse Rate 67 02/27/24 21:00 Respiratory Rate 16 02/27/24 21:00 Blood Pressure 152/83 H 02/27/24 21:00 Pulse Oximetry 98 02/27/24 21:00 Oxygen Delivery Method Room Air 02/27/24 21:00 Const: Awake, alert, no acute distress, nontoxic appearing HEENT: Airway patent, no lip/tongue swelling Cardiac: regular rate, regular rhythm RESP: unlabored, clear bilaterally, no wheezing GI: Soft, nontender, nondistended Skin: Warm, Dry, patient diffusely flushed Neuro: AO x3, CN II-XII grossly intact, moves all extremities Course Orders Ordered: Discontinued Medications Diphenhydramine HCl (Diphenhydramine 50 Mg/Ml Vial) 25 mg IV NOW ONE Stop: 02/27/24 21:12 Last Admin: 02/27/24 21:16 Dose: 25 mg Documented By: AB Famotidine (Famotidine 20 Mg/2 Ml Vial) 20 mg IV NOW LEIGH ANN Last Admin: 02/27/24 21:16 Dose: 20 mg Documented By: AB Methylprednisolone (Methylprednisolone 125 Mg/2 Ml Vial) 125 mg IV NOW ONE Stop: 02/27/24 21:12 Last Admin: 02/27/24 21:16 Dose: 125 mg Documented By: AB Vital Signs Vital signs: Vital Signs - 8 hr 02/27/24 21:00 02/27/24 21:08 02/27/24 21:30 Temperature 97.8 F Pulse Rate 67 66 60 Respiratory Rate 16 18 21 Blood Pressure 152/83 H Pulse Oximetry 98 98 98 Oxygen Delivery Method Room Air 02/27/24 21:30 02/27/24 21:42 02/27/24 21:42 Temperature Pulse Rate 66 Respiratory Rate 31 H Blood Pressure 165/82 H 148/83 H Pulse Oximetry 99 Oxygen Delivery Method 02/27/24 22:00 02/27/24 22:00 Temperature Pulse Rate 67 Respiratory Rate 31 H Blood Pressure 146/86 H Pulse Oximetry 98 Oxygen Delivery Method Room Air MDM - Allergic Reaction Differential Diagnosis Differential diagnosis: Likely anaphylaxis, allergic reaction and angioedema MDM Narrative Medical decision making narrative: Well-appearing patient with diffuse flushing, possible allergic reaction. Airway patent, no lip or tongue swelling, no wheezing. After vomiting patient's nausea resolved. He has already taken 25 mg of Benadryl, additional Benadryl, Pepcid, steroids ordered. Patient still has mild flushing on exam but is significantly improved from initial presentation. Patient has never had any lip or tongue swelling and continues to have no respiratory symptoms. No episodes of emesis since arrival to the emergency department. Patient antelmo an old epi-pen rx with him that he keeps on hand, however it in 2019. A refill of patient's EpiPen sent to pharmacy of choice. He was counseled that he may take additional Benadryl as needed for allergic symptoms. ED return precautions discussed at bedside with the patient and . Discharge Plan Departure Patient Disposition: Home Clinical Impression: Allergic reaction Instructions: DI for Hives Activity Restrictions/Additional Instructions: You were seen today for presumed allergic reaction. You may take an additional dose of Benadryl before you to bed. You may use Benadryl and a medication called Pepcid as needed if you experience allergic reaction the future. EpiPen prescription has been sent to the [facility] in [place]. If you notice tongue swelling, difficulty breathing, or are unable to keep medications down by mouth please return to the emergency department for repeat evaluation. Prescriptions: New epinephrine [Auvi-Q] 0.3 mg/0.3 mL auto-injector 0.3 mg IM Q5-15M PRN (Reason: anaphylaxis) Qty: 2 0RF Rx Instructions: do not exceed 3 doses per episode No Action cholecalciferol (vitamin D3) 10 mcg (400 unit) capsule 10 mcg PO DAILY Men 50 Plus Multivitamin 300-600-300 mcg tablet 1 tab PO DAILY alfuzosin [Uroxatral] 10 mg tablet extended release 24 hr 10 mg PO DAILY Qty: 90 3RF Rx Instructions: administer after the same meal each day Referrals: Jinny Howard, JELANI [Primary Care Provider] - Stand Alone Forms: Patient Portal/API
[2024-02-27] MEDS: methylPREDNISolone 125 MG/2 ML VIAL IV (21:16)
[2024-02-27] MEDS: FAMOTIDINE 20 MG/2 ML VIAL IV (21:16)
[2024-02-27] MEDS: diphenhydrAMINE 50 MG/ML VIAL 25 MG IV (21:16)
--- NOTE | 2024-02-27 21:28 | PC.NURSE ---
Pt does have some food allergies. He states that 1 hour after eating he had one episode of vomiting then symptoms started and he noticed the entire body redness.
[2024-02-27 21:30] VITALS: BP 165/82; PULSE 60; RESP 21; O2SAT 98
[2024-02-27 21:42] VITALS: BP 148/83; PULSE 66; RESP 31; O2SAT 99
[2024-02-27 22:00] VITALS: BP 146/86; PULSE 67; RESP 31; O2SAT 98
== END 2024-02-27 22:12 | disposition home or self-care (01) ==
PROVIDERS: Emergency Provider Emergency Medicine; PCP Student in an Organized Health Care Education/Training Program
DX: L50.9 Urticaria, unspecified (principal); T78.40XA Allergy, unspecified, initial encounter
CPT/HCPCS: 36415; 96374; 96375; 99284; J1200; J2919